=== PATIENT | female | born 2000 | race Caucasian/White ===

== ENCOUNTER 2025-09-09 13:36 | Emergency (ER) | payer MEDICAID, SELFPAY ==
--- OUTSIDE RECORDS SUMMARY | 2025-08-26 12:07 | XMS_ITS | Encounter Summary ---
[facility] Organization [facility] [facility] tem Address [id number] [place] [address] Care Team Providers Care Parachute Accessories Attacher Name Role Phone Unavailable Primary Care Provider Unavailabl e Reason for Visit * ReasonCommentsCough Encounter Details DateTypeDepartmentCare Team (Latest Contact Info)Mbswflpabgt20/06/2025 12:07 PM EST - 08/26/2025 1:18 PM [facility] - Emergency [address] [place] [id number] Saeed Friend MD [address] [place] [address] [address] [place] [address] Bronchial irritation (Primary Dx) Discharge Disposition: Home Social History Tobacco UseTypesPacks/DayYears UsedDateSmoking Tobacco: NeverPassive Smoke Exposure: YesSmokeless Tobacco: NeverAlcohol UseStandard Drinks/WeekCommentsNo0 (1 standard drink = 0.6 oz pure alcohol)Social Connection and Isolation Panel AnswerDate RecordedIn a typical week, how many times do you talk on the phone with family, friends, or neighbors?More than three times a week09/16/2022How often do you get together with friends or relatives?More than three times a week 2Attends Amish ServicesNot on file09/16/2022o you belong to any clubs or organizations such as jewish groups, unions, fraternal or athletic shalonda ups, or school groups?No09/16/2022ttends Club or Organization MeetingsNot on file09/16/2022Marital StatusNot on file09/16/2022UDIT-CAnswerDate RecordedQ1: How often do you have a drink containing alcohol?Monthly or less09/16/2022 Average Number of DrinksNot on file09/16/2022Frequency of Binge DrinkingNot on file09/16/2022verall Financial Resource Strain (CARDIA)AnswerDate RecordedHow hard is it for you to pay for the very basics like food, housing, medical care, and heating?Not hard at all07/06/2023HQ-2AnswerDate RecordedTotal Score4 07/06/2023[place] [employer] - Occupational Stress QuestionnaireAnswerDate RecordedDo you feel stress - tense, restless, nervous, or anxious, or unable to sleep at night because yourmind is troubled all the time - these days?Not at all09/16/2022RAPARE - TransportationAnswerDate RecordedIn the past 12 months, has lack of transportation kept you from medical appointments or from getting medications?No06/13/2023In the past 12 months, has lack of transportation kept you from meetings, work, or from getting things needed for daily living?No06/13/2023Edinburgh Depression ScaleAnswer Date RecordedEdinburgh Depression Scale Iepof58310/05/2023The thought of harming myself has occurred to me.Never10/05/2023Housing InstabilityAnswerDate RecordedAre you worried or concerned that in the next two months you may not have stable housing that you own, rent or stay in as a part of a household?No 08/08/2023hildcareAnswerDate RecordedDo problems getting child and adolescent therapist make it difficult for you to work or study?Yes07/06/2023EmploymentAnswerDate RecordedDo you need help finding a local career center and/or a training program?No 09/16/2022Hunger ScreeningAnswerDate RecordedWithin the past 12 months we worried whether our food would run out before we got money to buy more.Never True08/26/2025Within the past 12 months the food we bought just didn't last and we didn't have money to get more.Never True08/26/2025Purpose - LifeAnswerDate RecordedI have a purpose and direction in my life.Agree2 CommentsNoSex and Gender InformationValueDate RecordedSex Assigned at BirthNot on fileLegal HmaTlgqit90/04/2015 12:00 PM EDTGender IdentityNot on fileSexual OrientationNot on filedocumented as of this encounter Last Filed Vital Signs Vital SignReadingTime TakenCommentsBlood Dbxerskg677/8708/26/2025 1:17 PM EST Wibdt691808/26/2025 1:17 PM EMMIeiephmodef07.9 ??C (98.4 ??F)08/26/2025 12:14 PM ESTRespiratory Wqgg965810/27/2024 1:17 PM ESTOxygen Ltzaspghvf38%08/26/2025 1:17 PM ESTInhaled Oxygen Concentration--Umredg57.5 kg (140 lb)08/26/2025 12:14 PM HAHUwocro908.6 cm (5' 4 )08/26/2025 12:14 PM ESTBody Mass Index24.03110/27/2024 12:14 PM ESTdocumented in this encounter Functional Status * ED Hunger ScreeningQuestionAnswerDate of AssessmentAuthorWithin the past 12 months the food we bought just didn't last and we didn't have money to get more.Never True08/26/2025 12:15 PM Enma Garrison RNWithin the past 12 months we worried whether our food would run out before we got money to buy more.Never True08/26/2025 12:15 PM Enma Garrison RN * BEE (kcal)AnswerDate of KkysewzjbyFjxhgp456005/06/2025 12:14 PM Enma Garrison RN * Pain AssessmentQuestionAnswerDate of AssessmentAuthorPain AssessmentNo/denies pain08/26/2025 12:14 PM Enma Garrison RN * [place] Coma ScaleQuestionAnswerDate of AssessmentAuthorEye Mobzyua268/06/2025 12:15 PM Enma Garrison RNBest Motor Flojgjhk908/06/2025 12:15 PM Enma Cruz RNBest Verbal Lsaatnye054/06/2025 12:15 PM Enma Garrison RNGlasgow Coma Scale Sifjs5435/06/2025 12:15 PM Enma Garrison RN * Vital SignsQuestionAnswerDate of EgrfnkbxpnZfqkcoGV441/8708/26/2025 1:17 PM Fiordaliza Fuentes, AWSwcam4464/06/2025 1:17 PM Fiordaliza Fuentes RNResp18 08/26/2025 1:17 PM Fiordaliza Fuentes UCIjD34599/06/2025 1:17 PM Fiordaliza Fuentes RNHeart Rate SourcePulse Ox08/26/2025 1:17 PM Fiordaliza Fuentes RN * Patient ObservationQuestionAnswerDate of IfgzukmsntRmxodeQwaawx6493/06/2025 12:14 PM Enma Garrison RNWeight2240110/27/2024 12:14 PM Enma Garrison RN * BSA (Calculated - sq m)AnswerDate of AssessmentAuthor1.6908/26/2025 12:14 PM Enma Garrison RN * BMI (Calculated)AnswerDate of YnlcucftgjTushwj4110/06/2025 12:14 PM Enma Cruz RN * Height and WeightQuestionAnswerDate of AssessmentSouth[facility] MethodStated 08/26/2025 12:14 PM Enma Garrison RN * Abuse Indicator ScreeningQuestionAnswerDate of AssessmentAutPhysicians Care [facility] in [facility] 08/26/2025 12:15 PM Enma Garrison RNDo you feel safe in your relationship(s)?Yes08/26/2025 12:15 PM Enma Garrison RNAre you in immediate danger?No08/26/2025 12:15 PM Enma Garrison RN * Harm Risk AssessmentQuestionAnswerDate of AssessmentAuthorAre you having thoughts of homicide or causing harm to others?No08/26/2025 12:15 PM Enma Cruz RN * Blood HistoryQuestionAnswerDate of AssessmentAuthorHave you had a blood transfusion?No08/26/2025 12:16 PM Enma Garrison RNWould you accept a blood transfusion in a life-threatening situation?Yes08/26/2025 12:16 PM Enma Cruz RN * Fall Prevention Screening 18-64 yearsQuestionAnswerDate of AssessmentAuthorIs Patient Alert, Oriented and Able to Follow VkditvaqTfp91/06/2025 12:15 PM Enma Cruz RNFall Prevention ScreenDoes Not Apply to Patient - Screening Sxeubjhx25/06/2025 12:15 PM Enma Garrison RN * Vital SignsQuestionAnswerDate of LgchrwjqswPpnnwtQdgq50. 12:14 PM Enma Garrison RNTemp gokVqpi8308/26/2025 12:14 PM Enma Garrison RN BP LocationLeft arm08/26/2025 12:14 PM Enma Garrison RNBP Method Dkupqenbu15/06/2025 12:14 PM Enma Garrison RNPatient Position Semi-ibxwmej7908/26/2025 12:14 PM Enma Garrison RN * Oxygen TherapyQuestionAnswerDate of AssessmentAuthorO2 DeviceNone (Room air) 08/26/2025 12:14 PM Enma Garrison RN * RespiratoryQuestionAnswerDate of AssessmentAuthorRespiratory PatternRegular 08/26/2025 12:30 PM Fiordaliza Fuentes RNChesmarc AssessmentChest expansion drhtewqtjkp79/06/2025 12:30 PM Fiordaliza Fuentes RNCoughCongested08/26/2025 12:30 PM Fiordaliza Fuentes RNCough UeanbojCrh21/06/2025 12:30 PM Fiordaliza Titus RN * Adult Sepsis RiskQuestionAnswerDate of AssessmentAuthorSIRS Criteria0 08/26/2025 1:01 PM Tate ClindocRigia of Sepsis v.20.6110/27/2024 1:01 PM Tate Clindoc * AirwayQuestionAnswerDate of AssessmentAuthorAirway (WDL)WDL110/27/2024 12:15 PM Enma Garrison RN * BreathingQuestionAnswerDate of AssessmentAuthorBreathing (WDL)WDL110/27/2024 12:15 PM Enma Garrison RN * CirculationQuestionAnswerDate of AssessmentAuthorCirculation (WDL)WDL 08/26/2025 12:15 PM Enma Garrison RN * DisabilityQuestionAnswerDate of AssessmentAuthorDisability ([facility])WDL110/27/2024 12:15 PM Enma Garrison RN * Weight in (lb) to have BMI = 25AnswerDate of PokiqmlgwxDgrjcn090. 12:14 PM Enma Garrison RN * [place] Suicide BehaviorQuestionAnswerDate of AssessmentAuthor6. Have you ever done anything, started to do anything, or prepared to do anything to end your life?No08/26/2025 12:15 PM Enma Garrison RN * Suicidal Ideation (Last Month)QuestionAnswerDate of AssessmentAuthor1. In the last month have you wished you were or wished you could go to sleep and not wake up?No08/26/2025 12:15 PM Enma Garrison RN2. In the last month have you actually had any thoughts of killing yourself?No08/26/2025 12:15 PM Enma Garrison RNAble to assess?Yes08/26/2025 12:15 PM Enma Garrison RN * Vitals TimerQuestionAnswerDate of AssessmentAuthorRestart Vitals TimerYes 08/26/2025 1:17 PM Fiordaliza Fuentes RN * Respiratory (WDL)AnswerDate of HzwyrfreppMddeuaF49/06/2025 12:30 PM Fiordaliza Titus RN * TB ScreeningQuestionAnswerDate of AssessmentAuthorPatient has prolonged cough? No08/26/2025 12:15 PM Enma Garrison RNPatient has bloody cough?No 08/26/2025 12:15 PM Enma Garrison RNPatient has fever?No08/26/2025 12:15 PM Enma Garrison RNPatient has night sweats?No08/26/2025 12:15 PM Enma Garrison RNPatient has weight loss?No08/26/2025 12:15 PM EST Enma Dobbins RNPatient has positive PPD?No08/26/2025 12:15 PM Enma Cruz RN * [place] Suicide Risk LevelAnswerDate of AssessmentAuthorNot at Suicide Risk 08/26/2025 12:15 PM Enma Garrison RN * BEE (kcal)AnswerDate of ReutgwfxmnMiesyo527987/06/2025 12:14 PM Enma Garrison RN * Vital SignsQuestionAnswerDate of YqkcgzouvtZnbedzFU070/8708/26/2025 1:17 PM Fiordaliza Fuentes RNPulse6308/26/2025 1:17 PM Fiordaliza Fuentes RNResp18 08/26/2025 1:17 PM Fiordaliza Fuentes RNSpO29808/26/2025 1:17 PM Fiordaliza Fuentes RNHeart Rate SourcePulse Ox08/26/2025 1:17 PM Fiordaliza Fuentes RN * Patient ObservationQuestionAnswerDate of WggzastfqfJzaljsUqyivo4897/06/2025 12:14 PM Enma Garrison RNWeight2240110/27/2024 12:14 PM Enma Garrison RN * BSA (Calculated - sq m)AnswerDate of AssessmentAuthor1.6908/26/2025 12:14 PM Enma Garrison RN * BMI (Calculated)AnswerDate of SpjlsvkosiQwsfdo4421 12:14 PM Enma Cruz RN * Height and WeightQuestionAnswerDate of AssessmentAuthorHeight MethodStated 08/26/2025 12:14 PM Enma Garrison RN * Vital SignsQuestionAnswerDate of XffjfirwujVlvkmzDrth49.412 12:14 PM Enma Garrison RNTemp ldrOpdi8808/26/2025 12:14 PM Enma Garrison RN BP LocationLeft arm08/26/2025 12:14 PM Enma Garrison RNBP Method Iwuylyhyb53/06/2025 12:14 PM Enma Garrison RNPatient Position Semi-aqjkiah3508/26/2025 12:14 PM Enma Garrison RN * Weight in (lb) to have BMI = 25AnswerDate of VhqaubzktyYjfrjl833.312 12:14 PM Enma Garrison RN documented as of this encounter Mental Status * Pain AssessmentQuestionAnswerEntry DateAuthorPain AssessmentNo/denies pain 08/26/2025 12:14 PM Enma Garrison RN * [place] Coma ScaleQuestionAnswerEntry DateAuthorEye Keechav231/06/2025 12:15 PM Enma Garrison RNBest Motor Gescdxwx622/06/2025 12:15 PM Enma Garrison RNBest Verbal Vgbnosdy923/06/2025 12:15 PM Enma Garrison RN Mcarthur Coma Scale Jbmlo7558/06/2025 12:15 PM Enma Garrison RN * Vital SignsQuestionAnswerEntry PmbhSvzudxFF173/8708/26/2025 1:17 PM Fiordaliza Titus RNPulse6308/26/2025 1:17 PM Fiordaliza Fuentes RNResp18 08/26/2025 1:17 PM Fiordaliza Fuentes RNSpO29808/26/2025 1:17 PM Fiordaliza Fuentes RNHeart Rate SourcePulse Ox08/26/2025 1:17 PM Fiordaliza Fuentes RN * Vital SignsQuestionAnswerEntry XadxJtahazMvej34. 12:14 PM Enma Cruz RNTemp iiwKbiw6208/26/2025 12:14 PM Enma Garrison RNBP LocationLeft arm08/26/2025 12:14 PM Enma Garrison RNBP MethodAutomatic 08/26/2025 12:14 PM Enma Garrison, RNPatient PositionSemi-fowlers 08/26/2025 12:14 PM Enma Garrison RN * Oxygen TherapyQuestionAnswerEntry DateAuthorO2 DeviceNone (Room air)08/26/2025 12:14 PM Enma Garrison RN * RespiratoryQuestionAnswerEntry DateAuthorRespiratory JuqsdunQpihyya34/06/2025 12:30 PM Fiordaliza Fuentes RNChest AssessmentChest expansion symmetrical 08/26/2025 12:30 PM Fiordaliza Fuentes RN documented in this encounter Discharge Instructions * Discharge Instructions* Saeed Friend MD - 08/26/2025 12:59 PM EST Today you were evaluated for blood-streaked mucus. Your exam, chest X-ray, and blood tests (D-dimer) were normal. This is reassuring and means there is no evidence of a serious lung problem such as pneumonia, a blood clot, or a collapsed lung. Your symptoms are most consistent with irritation of the airways, which can happen after coughing, throat dryness, recent illness, or minor inflammation of the bronchial tubes. What You Can Do at Home 1. Humidify the Air Dry air can make coughing and irritation worse. Use a cool-mist humidifier in your bedroom at night. Staying well-hydrated also helps thin mucus. 2. Medications That Are Safe You may use: Guaifenesin (Mucinex) to help loosen mucus. Honey or warm tea for throat soothing. 3. Medications to AVOID Right Now These can dry out the airways and make symptoms worse: Antihistamines like diphenhydramine (Benadryl), loratadine (Claritin), cetirizine (Zyrtec) Decongestants like pseudoephedrine (Sudafed) or phenylephrine Cough suppressants with dextromethorphan if they cause dryness Frequent use of inhalers that were not prescribed for you Smoking or vaping (avoid completely) What to Expect: Blood-streaked sputum from airway irritation is usually self-limited and improves over the next several days. Return to the ER Immediately If You Develop: Increasing amounts of blood Fever, chills, or worsening shortness of breath Chest pain Feeling faint or coughing up clots Symptoms that worsen instead of improve over 48 hours Any new or concerning symptoms Follow-Up Follow up with your primary care provider in 1-2 days or sooner if symptoms worsen. * Attachments The following attachments cannot be sent through Care Everywhere. * Bronchitis in adults ??? ED discharge instructions (French) documented in this encounter Medications at Time of Discharge MedicationSigDispense QuantityRefillsLast FilledStart DateEnd Date ibuprofen (MOTRIN) 800 mg tablet Take 1 tablet (800 mg total) by mouth every 8 (eight) hours as needed for pain. 30 tablet 4documented as of this encounter ED Notes * Saeed Friend MD - 08/26/2025 12:14 PM EST Images from the original note were not included. [facility] - EMERGENCY Pt Name: Radha Rudd Birthdate: 2000 Chief Complaint: Chief Complaint Patient presents with Cough History of Present Illness: Initial evaluation done by Dr. Kedar Friend at 12:15 PM Pt is a 25 y.o. female presenting to ED with chief complaint of cough. Pt reports a few hours priorto her arrival at the ED she coughed up blood. She reports it was dark at first, then bright red, and then she coughed up a clot. She reports a hx of Mitral Valve Prolapse, but states she has nevercoughed up blood before. Pt denies any chest pain, calf pain or swelling, any recent travel, surgeries, and denies blood thinners or oral control. History provided by: Patient Past Medical History: Past Medical History: Diagnosis Date Anemia during pregnency Anxiety Arrhythmia palpitations due to MVP Asthma no issues since age 6 COVID-2019 Dysautonomia (CMS-HCC) GERD (gastroesophageal reflux disease) when , resolved now Hydronephrosis RIGHT KIDNEY, HAD STENT AND NEPHROSTOMY PLACED during her recent Mitral valve prolapse Peptic ulceration years ago POTS (postural orthostatic tachycardia syndrome) Recurrent UTI Renal colic on right side Past Surgical History: Past Surgical History: Procedure Laterality Date CYSTOSCOPY REMOVAL STENT RT Right 08/08/2019 Performed by Lucille Marsh MD at [facility] CYSTOSCOPY URETEROSCOPY, Right ureteral stent placement Right 08/05/2019 Performed by Lucille Marsh MD at [facility] LAPAROSCOPIC SALPINGECTOMY Bilateral 10/29/2023 Performed by Jane Kramer DO at [facility] NEPHROSTOMY W/ INTRODUCTION OF CATHETER Right 05/23/2023 inserted at [facility] Family History: Family History Problem Relation Age of Onset Cancer Paternal Grandfather LUNG Heart disease Paternal Grandfather Hypertension Paternal Grandfather Asthma Paternal Grandfather Heart attack Paternal Grandfather in his 50s No Known Problems Paternal Grandmother No Known Problems Maternal Grandmother No Known Problems Maternal Grandfather Other Father MVA No Known Problems Mother Asthma Brother No Known Problems Sister Hypertension Maternal Aunt Heart defect Neg Hx Seizures Neg Hx Diabetes Neg Hx Arrhythmia Neg Hx Sudden Neg Hx Stroke Neg Hx Clotting disorder Neg Hx High Cholesterol Neg Hx Thyroid Issues Neg Hx Anesthesia problems Neg Hx Social History: Social History Socioeconomic History Marital status: Single Tobacco Use Smoking status: Never Passive exposure: Yes Smokeless tobacco: Never Vaping Use Vaping status: Never Used Substance and Sexual Activity Alcohol use: No Drug use: Never Sexual activity: Defer Social History Narrative NO SPORTS NO SPECIAL DIET Social Drivers of Health Financial Resource Strain: Low Risk (07/06/2023) Overall Financial Resource Strain (CARDIA) Difficulty of Paying Living Expenses: Not hard at all Food Insecurity: No Food Insecurity (08/26/2025) Hunger Screening Food Insecurity - Worry: Never True Food Insecurity - Inability: Never True Transportation Needs: No Transportation Needs (06/13/2023) PRAPARE - Transportation Lack of Transportation (Medical): No Lack of Transportation (Non-Medical): No Stress: No Stress Concern Present (09/16/2022) [place] Citizen [place] [employer] - Occupational Stress Questionnaire Feeling of Stress : Not at all Social Connections: Unknown (09/16/2022) Social Connection and Isolation Panel Frequency of Communication with Friends and Family: More than three times a week Frequency of Social Gatherings with Friends and Family: More than three times a week Active Member of Clubs or Organizations: No Interpersonal Safety: Unknown (11/12/2023) Received from [facility] Safety & Environment Fear of Current or Ex-Partner: Not on file Emotionally Abused: Not on file Physically Abused: Not on file Sexually Abused: Not on file Physically or Sexually Abused: Not on file Housing Instability: Low Risk (08/08/2023) Housing Instability Housing Instability: No Review of Systems: Review of Systems Physical Exam: ED Triage Vitals Temp Pulse Resp BP SpO2 -- -- -- -- -- Temp src Heart Rate Source Patient Position BP Location FiO2 (%) -- -- -- -- -- Vitals: 08/26/25 1214 08/26/25 1317 BP: 143/81 105/87 Temp: 36.9 ??C (98.4 ??F) TempSrc: Oral Pulse: (!) 47 63 Resp: 18 18 SpO2: 99% 98% Height: 162.6 cm (5' 4 ) Weight: 63.5 kg (140 lb) 98 Physical Exam Vitals reviewed. HENT: Head: Normocephalic and atraumatic. Eyes: Conjunctiva/sclera: Conjunctivae normal. Cardiovascular: Rate and Rhythm: Normal rate and regular rhythm. Comments: Mid-systolic click Pulmonary: Effort: Pulmonary effort is normal. Breath sounds: Normal breath sounds. Comments: Pt showed a photo of the blood she coughed up- showed streaked sputum, no germania hemoptysis Abdominal: General: There is no distension. Palpations: Abdomen is soft. Musculoskeletal: General: Normal range of motion. Cervical back: Normal range of motion and neck supple. Skin: General: Skin is warm and dry. Neurological: General: No focal deficit present. Mental Status: She is alert and oriented to person, place, and time. GCS: GCS eye subscore is 4. GCS verbal subscore is 5. GCS motor subscore is 6. Procedure: Procedures Re-evaluation: I, Mahi Handy (scribe), documented on behalf and in the presence of Dr. Kedar Friend. Medical Decision Making Likely bronchial irritation/bronchitis. Supportive care and reassurance. CXR negative, D-dimer negative. Plan to discharge patient with follow up to primary care physician. Patient given strict return precautions. Patient expressed understanding. All questions and concerns answered and addressed. Patient agreeable to discharge plan. Problems Addressed: Bronchial irritation: self-limited or minor problem Amount and/or Complexity of Data Reviewed Labs: ordered. Decision-making details documented in ED Course. Radiology: ordered. Decision-making details documented in ED Course. ED Course: ED Course as of 08/26/25 1436 Sat Aug 26, 2025 1249 X-ray chest 1 view Imaging was independently viewed and is notable for no acute infitrate. However, pending official radiologist read. [RH] 1305 D-dimer: <150 Reassuring against acute VTE. [RH] 1305 Plan to discharge patient with follow up to primary care physician. Patient given strict return precautions. Patient expressed understanding. All questions and concerns answered and addressed. Patient agreeable to discharge plan. [RH] ED Course User Index [RH] Saeed Friend MD Clinical Impressions as of 08/26/25 1436 Bronchial irritation . ED Disposition ED Disposition Discharge Date/Time Sat Aug 26, 2025 1:06 PM Comment At the time of discharge, the plan has been discussed with the patient regarding the diagnosis and prognosis. All questions have been answered. Verbal discharge instructions were discussed with the patient. The patient has been advised to follow up w ith their Primary Care Provider within 1-2 days.The patient was also instructed to return to the ED if their symptoms change, worsen, new symptoms a rise or if they have any additional concerns. . Please note that portions of this note were completed with a voice recognition program. Efforts were made to edit the dictations but occasionally words are mis-transcribed. Mahi Handy 08/26/25 1220 Mahi Handy 08/26/25 1227 Saeed Friend MD 08/26/25 1436 * Enma Dobbins RN - 08/26/2025 12:11 PM EST Pt presents with c/o coughing up blood. Reports about a couple hrs ago she coughed up some bright red blood and a dark blood clot. No other sx. documented in this encounter Plan of Treatment Not on file documented as of this encounter Procedures Procedure NamePriorityDate/TimeAssociated DiagnosisCommentsXR CHEST 1 VWSTAT 08/26/2025 12:44 PM EST EXTRA TUBES LAVENDER GBFGikslnx05/06/2025 12:27 PM EST EXTRA TUBES PST IXNXrpgznf86/06/2025 12:27 PM EST EXTRA EQRPCBgiuycs36/06/2025 12:27 PM EST D-NTDXOITMW54/06/2025 12:27 PM EST documented in this encounter Results * X-ray chest 1 view (08/26/2025 12:44 PM EST)Anatomical RegionLaterality ModalityBody, ChestN/AComputed RadiographySpecimen (Source)Anatomical Location / LateralityCollection Method / VolumeCollection TimeReceived Time08/26/2025 12:46 PM EST Narrative 08/26/2025 12:46 PM EST XR CHEST 1 VW: 08/26/2025 12:44 PM Clinical: ??Cough. Bloody sputum. Upright portable chest is compared with 08/12/2023. Heart size is normal. No focal consolidation, large effusion, or pneumothorax. IMPRESSION: * ??No acute disease to limits of this single view exam. ?? * ??Recommend a two-view chest or CT if symptoms persist. Finalized by Chilango Menard MD on 08/26/2025 12:46 PM Procedure Note Chilango Menard MD - 08/26/2025 XR CHEST 1 VW: 08/26/2025 12:44 PM Clinical: Cough. Bloody sputum. Upright portable chest is compared with 08/12/2023. Heart size is normal. No focal consolidation, large effusion, or pneumothorax. IMPRESSION: * No acute disease to limits of this single view exam. * Recommend a two-view chest or CT if symptoms persist. Finalized by Chilango Menard MD on 08/26/2025 12:46 PM Authorizing ProviderResult TypeResult Christa [facility] ORDERABLESFinal Result * Lavender Top (08/26/2025 12:27 PM EST)ComponentValueRef RangeTest Method Analysis TimePerformed AtPathologist SignatureExtra TubeAuto Resulted 08/26/2025 2:01 PM ESTMem[facility] (Source) Anatomical Location / LateralityCollection Method / VolumeCollection Time Received TimeBloodVenous blood / Vckfcmw5008/26/2025 12:27 PM EST08/26/2025 12:38 PM EST Narrative Authorizing ProviderResult TypeResult Christa LYNN BLOOD ORDERABLES Final ResultPerforming OrganizationAddressCity/State/ZIP CodePhone Number [address] [address], * PST TOP (08/26/2025 12:27 PM EST)ComponentValueRef RangeTest MethodAnalysis TimePerformed AtPathologist SignatureExtra TubeAuto Jjorzpml06/06/2025 2:01 PM [facility] (Source)Anatomical Location / LateralityCollection Method / VolumeCollection TimeReceived TimeBloodVenous blood / Tzqnzyf4508/26/2025 12:27 PM EST08/26/2025 12:38 PM EST Narrative Authorizing ProviderResult TypeResult Christa LYNN BLOOD ORDERABLES Final ResultPerforming OrganizationAddressty/State/ZIP CodePhone Number [address] [address], [place] * D-Dimer (08/26/2025 12:27 PM EST)ComponentValueRef RangeTest MethodAnalysis TimePerformed AtPathologist SignatureD DIMER<1501 - 255 ng/mL08/26/2025 1:02 PM ESTPROMEDICA NORTHERN INYO HOSPITALComment:Results <255 ng/mL DDU: The presensence of a VTE can safely be excluded with a negative D-Dimer result and Wells score. A negative result doesn't exclude the possibility of DIC. The test should berepeated along with other diagnostic tests if the patient's symptoms persist or worsen.Specimen (Source)Anatomical Location / Laterality Collection Method / VolumeCollection TimeReceived TimeBloodVenous blood / UnknownVenipuncture / Rlmfctk8008/26/2025 12:27 PM EST08/26/2025 12:37 PM EST Narrative Authorizing ProviderResult TypeResult StatusSaeed LYNN BLOOD ORDERABLES Final ResultPerforming OrganizationAddressCity/State/ZIP CodePhone Number [facility] [address] [place] [address], documented in this encounter Visit Diagnoses Diagnosis Bronchial irritation- Primary documented in this encounter Additional Health Concerns AssessmentNoted TimePHQ-9 Depression Total Score: 410 11:30 AM EDT documented as of this encounter
--- OUTSIDE RECORDS SUMMARY | 2025-09-09 09:42 | XMS_ITS | Encounter Summary ---
Author Organization [facility] tem Address [id number] [address] [place] [address] Care Team Providers Care Audit Analyst Name Role Phone Ema Strong MD Primary Care Provider [phone] Reason for Visit * ReasonCommentsVomitingPatient c/o vomiting x2 days and a headache since yesterday Encounter Details DateTypeDepartmentCare Team (Latest Contact Info)Wzaomuiflnl24/20/2025 9:42 AM EST - 09/09/2025 12:30 PM [facility] - Emergency [address] [place] [address] Ifrah Schmidt, DO [address] [place] [address] Gastroenteritis (Primary Dx) Discharge Disposition: Home Social History [...] or relatives?More than three times a week 09/16/2022ttends Roman Catholic ServicesNot on file09/16/2022o you belong to any clubs or organizations such as hindu groups, unions, fraternal or athletic shalonda ups, [...] and heating?Not hard at all07/06/2023HQ-2AnswerDate RecordedTotal Score4 07/06/2023[facility] [place] [facility] - Occupational Stress QuestionnaireAnswerDate [...] living?No06/13/2023Edinburgh Depression ScaleAnswer Date RecordedEdinburgh Depression Scale Vecil89110/05/2023The thought of harming myself has occurred to me.Never10/05/2023Housing InstabilityAnswerDate RecordedAre you worried or concerned that in the next two months you may not have stable housing that you own, rent or stay in as a part of a household?No 08/08/2023hildcareAnswerDate RecordedDo problems getting children's institution attendant make it difficult for you to work or study?Yes07/06/2023EmploymentAnswerDate RecordedDo you need help finding a local career center and/or a training program?No 09/16/2022Hunger ScreeningAnswerDate RecordedWithin the past 12 months we worried whether our food would run out before we got money to buy more.Never True09/09/2025Within the past 12 months the food we bought just didn't last and we didn't have money to get more.Never True09/09/2025Purpose - LifeAnswerDate RecordedI have a purpose and direction in my life.Agree09/16/2022 CommentsNoSex and Gender InformationValueDate RecordedSex Assigned at BirthNot on fileLegal UvvClcwoj53/04/2015 12:00 PM EDTGender IdentityNot on fileSexual OrientationNot on filedocumented as of this encounter Last Filed Vital Signs Vital SignReadingTime TakenCommentsBlood Onizqcxs747/7109/09/2025 11:43 AM EST Ylrzp898809/09/2025 11:43 AM PVZQurnbffxnqk33.4 ??C (97.6 ??F)09/09/2025 9:46 AM ESTRespiratory Iegz142911/10/2024 11:43 AM ESTOxygen Dpssigaznq78%09/09/2025 11:43 AM ESTInhaled Oxygen Concentration--Ijhuul64.5 kg (140 lb)09/09/2025 9:46 AM EST Height--Body Mass Index24.03110/27/2024 12:14 PM ESTdocumented in this encounter Functional Status * ED Hunger ScreeningQuestionAnswerDate of AssessmentAuthorWithin the past 12 months the food we bought just didn't last and we didn't have money to get more.Never True09/09/2025 9:48 AM Khushbu Smith RNWithin the past 12 months we worried whether our food would run out before we got money to buy more.Never True09/09/2025 9:48 AM Khushbu Smith RN * Pain AssessmentQuestionAnswerDate of AssessmentAuthorPain LocationAbdomen 09/09/2025 9:48 AM Khushbu Smith RNPain OrientationRight;Left;Lower 09/09/2025 9:48 AM Khushbu Smith RNPain XivagswjjueMbybe77/20/2025 9:48 AM Khushbu Smith RNPain DurationConstant/kpwpejljzl54/20/2025 9:48 AM Khushbu Smith RNPain TypeAcute pain09/09/2025 9:48 AM Khushbu Smith RNPain Assessment0-10111/10/2024 9:48 AM Khushbu Smith RNPain Bklhc66611/10/2024 9:48 AM Khushbu Smith RN * [place] Coma ScaleQuestionAnswerDate of AssessmentAuthorEye Ezzkmxv338/20/2025 9:47 AM Khushbu Smith RNBest Motor Ertyazhu800/20/2025 9:47 AM Khushbu Mills RNBe Verbal Fxuxnrkq655/20/2025 9:47 AM Khushbu Smith RNGlasgow Coma Scale Rwzka8302/20/2025 9:47 AM Khushbu Smith RN * Patient ObservationQuestionAnswerDate of ZbrguiorjeGkhgffUzbgay019514/20/2025 9:46 AM Khushbu Smith RN * Abuse Indicator ScreeningQuestionAnswerDate of AssessmentAuthorSafe in HomeYes 09/09/2025 9:48 AM Khushbu Smith RNDo you feel safe in your relationship(s)?Yes09/09/2025 9:48 AM Khushbu Smith RNAre you in immediate danger?No09/09/2025 9:48 AM Khushbu Smith RN * Harm Risk AssessmentQuestionAnswerDate of AssessmentAuthorAre you having thoughts of homicide or causing harm to others?No09/09/2025 9:47 AM Khushbu Mills RN * Blood HistoryQuestionAnswerDate of AssessmentAuthorHave you had a blood transfusion?No09/09/2025 9:48 AM Khushbu Smith RNWould you accept a blood transfusion in a life-threatening situation?Yes09/09/2025 9:48 AM Khushbu Mills RN * Fall Prevention Screening 18-64 yearsQuestionAnswerDate of AssessmentAuthorIs Patient Alert, Oriented and Able to Follow RqovnplfWks23/20/2025 9:48 AM Khushbu Mills RNFall Prevention ScreenDoes Not Apply to Patient - Screening Jhawvrbp68/20/2025 9:48 AM Khushbu Smith RN * Vital SignsQuestionAnswerDate of PevtowumptHfkgbnUY928/7109/09/2025 11:43 AM Diane Gonsalez QZHyyp82.6111/10/2024 9:46 AM Khushbu Smith, RNTemp txvHoiv6709/09/2025 9:46 AM Khushbu Smith, DDBokip5406/20/2025 11:43 AM Diane Gonsalez SQKpto7818/20/2025 11:43 AM Diane Gonsalez, RTPtR524 09/09/2025 11:43 AM Diane Gonsalez RNHeart Rate SourcePulse Ox09/09/2025 9:46 AM Khushbu Smith RNBP LocationLeft arm09/09/2025 9:46 AM Khushbu Mills RNBP PcmfptExcdgzcsz12/20/2025 9:46 AM Khushbu Smith RNPatient PositionLying nrijdj4009/09/2025 9:46 AM Khushbu Smith, RAFFY * Oxygen TherapyQuestionAnswerDate of AssessmentAuthorO2 DeviceNone (Room air) 09/09/2025 11:43 AM Diane Gonsalez RN * NeurologicalQuestionAnswerDate of AssessmentAuthorNeuro (WDL)WDL111/10/2024 12:26 PM Diane Gonsalez RN * Adult Sepsis RiskQuestionAnswerDate of AssessmentAuthorSIRS Criteria0 09/09/2025 12:40 PM ESTBackground, ClindocRisk of Sepsis v.20. 12:41 PM ESTBackground, Clindoc * AirwayQuestionAnswerDate of AssessmentAuthorAirway (WDL)WDL111/10/2024 9:47 AM Khushbu Smith, RAFFY * BreathingQuestionAnswerDate of AssessmentAuthorBreathing (WDL)WDL111/10/2024 9:47 AM Khushbu Smith, RAFFY * CirculationQuestionAnswerDate of AssessmentAuthorCirculation (WDL)WDL 09/09/2025 9:47 AM Khushbu Smith RN * DisabilityQuestionAnswerDate of AssessmentAuthorDisability (WDL)WDL111/10/2024 9:47 AM Khushbu Smith RN * Bedside MonitorQuestionAnswerDate of AssessmentAuthorPulse Ox Monitoring Fvajkekxls71/20/2025 10:07 AM Khushbu Smith RNBedside Monitoring Atakboay05/20/2025 10:07 AM Khushbu Smith RNMonitoring Interventions Vykgdmhnc52/20/2025 10:07 AM Khushbu Smith RNMonitoring AlarmsAudible 09/09/2025 10:07 AM Khushbu Smith RN * Family/Data Warehousing Engineer NotifiedQuestionAnswerDate of AssessmentAuthor Family/Data Warehousing Engineer notified of Emergency Department Admission?Family iaxdshq6109/09/2025 9:48 AM Khushbu Smith RN * [place] Suicide BehaviorQuestionAnswerDate of AssessmentAuthor6. Have you ever done anything, started to do anything, or prepared to do anything to end your life?No09/09/2025 9:47 AM Khushbu Smith RN * Suicidal Ideation (Last Month)QuestionAnswerDate of AssessmentAuthor1. In the last month have you wished you were or wished you could go to sleep and not wake up?No09/09/2025 9:47 AM Khushbu Smith RN2. In the last month have you actually had any thoughts of killing yourself?No09/09/2025 9:47 AM Khushbu Smith RNAble to assess?Yes09/09/2025 9:47 AM Khushbu Smith RN * AbdominalQuestionAnswerDate of AssessmentAuthorAbdomen AssessmentTenderness 09/09/2025 10:40 AM Khushbu Smith RNAbdomen Tenderness LocationRLQ;LLQ 09/09/2025 10:40 AM Khushbu Smith RNGI SymptomsCramping;Nausea;Vomiting 09/09/2025 10:40 AM Khushbu Smith RNGastrointestinal (WDL)X111/10/2024 10:40 AM Khushbu Smith RN * Skin Color/ConditionQuestionAnswerDate of AssessmentAuthorSkin Color/Condition (WDL)WDL111/10/2024 11:44 AM Diane Gonsalez RN * CardiovascularQuestionAnswerDate of AssessmentAuthorCardiovascular (WDL)WDL 09/09/2025 12:26 PM Diane Gonsalez RN * Vitals TimerQuestionAnswerDate of AssessmentAuthorRestart Vitals TimerYes 09/09/2025 11:43 AM Diane Gonsalez RNRestart Vitals RthvqYwu36/20/2025 11:43 AM Diane Gonsalez RN * Respiratory (WDL)AnswerDate of QebjvcoxcsRtkhtfXFW89/20/2025 12:26 PM Diane Bates RN * TB ScreeningQuestionAnswerDate of AssessmentAuthorPatient has prolonged cough? No09/09/2025 9:48 AM Khushbu Smith RNPatient has bloody cough?No 09/09/2025 9:48 AM Khushbu Smith RNPatient has fever?No09/09/2025 9:48 AM Khushbu Smith RNPatient has night sweats?No09/09/2025 9:48 AM Khushbu Mills RNPatient has weight loss?No09/09/2025 9:48 AM Khushbu Smith RNPatient has positive PPD?No09/09/2025 9:48 AM Khushbu Smith RN * [place] Suicide Risk LevelAnswerDate of AssessmentAuthorNot at Suicide Risk 09/09/2025 9:47 AM Khushbu Smith RN * Patient ObservationQuestionAnswerDate of GhnrgjtiicKysfelVapral381820/20/2025 9:46 AM Khushbu Smith RN * Vital SignsQuestionAnswerDate of JqofbwtgioCinwfqQH582/7109/09/2025 11:43 AM Diane Gonsalez RNTemp97.6111/10/2024 9:46 AM Khushbu Smith RNTemp lecCjst8009/09/2025 9:46 AM Khushbu Smith, OGWuusx8373/20/2025 11:43 AM Diane Gonsalez LMDvni1637/20/2025 11:43 AM Diane Gonsalez, VNGcR544 09/09/2025 11:43 AM Diane Gonsalez RNHeart Rate SourcePulse Ox09/09/2025 9:46 AM Khushbu Smith RNBP LocationLeft arm09/09/2025 9:46 AM Khushbu Mills RNBP ZtnaufYakrljmlw17/20/2025 9:46 AM Khushbu Smith RNPatient PositionLying zqinmm0809/09/2025 9:46 AM Khushbu Smith RN documented as of this encounter Mental Status * Pain AssessmentQuestionAnswerEntry DateAuthorPain NcrwvwcrGurvcjw75/20/2025 9:48 AM Khushbu Smith RNPain OrientationRight;Left;Lower09/09/2025 9:48 AM Khushbu Smith RNPain NfignyiydjpOijdt66/20/2025 9:48 AM Khushbu Smith RNPain DurationConstant//20/2025 9:48 AM Khushbu Smith RNPain Assessment0-10111/10/2024 9:48 AM Khushbu Smith RNPain Gafff28111/10/2024 9:48 AM Khushbu Smith RN * [place] Coma ScaleQuestionAnswerEntry DateAuthorEye Ajftnpg399/20/2025 9:47 AM Khushbu Smith RNBest Motor Mkkotepk085/20/2025 9:47 AM Khushbu Smith RNBest Verbal Oenyrder032/20/2025 9:47 AM Khushbu Smith RN Verena Coma Scale Opnnb5124/20/2025 9:47 AM Khushbu Smith RN * Vital SignsQuestionAnswerEntry ZapdPvoffqIK235/7109/09/2025 11:43 AM Diane Gonsalez RNTemp97.6111/10/2024 9:46 AM Khushbu Smith RNTemp srcOral 09/09/2025 9:46 AM Khushbu Smith, UQPuukb9663/20/2025 11:43 AM Diane Gonsalez RNResp18111/10/2024 11:43 AM Diane Gonsalez LNLsL32398/20/2025 11:43 AM Diane Gonsalez RNHeart Rate SourcePulse Ox09/09/2025 9:46 AM Khushbu Mills RNBP LocationLeft arm09/09/2025 9:46 AM Khushbu Smith RNBP MozraqQehljvrzg59/20/2025 9:46 AM Khushbu Smith RNPatient Position Lying ukgwcb5709/09/2025 9:46 AM Khushbu Smith RN * Oxygen TherapyQuestionAnswerEntry DateAuthorO2 DeviceNone (Room air)09/09/2025 11:43 AM Diane Gonsalez RN * NeurologicalQuestionAnswerEntry DateAuthorNeuro (WDL)WDL111/10/2024 12:26 PM Diane Gonsalez RN * Bedside MonitorQuestionAnswerEntry DateAuthorBedside MonitoringHardwire 09/09/2025 10:07 AM Khushbu Smith RNMonitoring InterventionsInitiated 09/09/2025 10:07 AM Khushbu Smith RNMonitoring VxydvmIlcvtmb35/20/2025 10:07 AM Khushbu Smith RN * AbdominalQuestionAnswerEntry DateAuthorAbdomen CqeigyiyauXhcslgzsdu32/20/2025 10:40 AM Khushbu Smith RNAbdomen Tenderness LocationRLQ;LLQ111/10/2024 10:40 AM Khushbu Smith RNGI SymptomsCramping;Nausea;Uzzwpkly34/20/2025 10:40 AM Khushbu Smith RN documented in this encounter Discharge Instructions * Discharge Instructions* Ifrah Schmidt, DO - 09/09/2025 11:39 AM EST Stick with clear liquids currently. Advance your diet slowly as tolerated. Zofran for the nausea and vomiting. Thank you for allowing me to participate in your healthcare needs and for choosing us to provide your medical care today. Please return to the emergency department anytime for any complications or other concerns. Please call your doctor for outpatient follow up and recommendations. The emergency room cannot replace ongoing care, and it is important for your physician to evaluate you and monitor your health half-way. * Attachments The following attachments cannot be sent through Care Everywhere. * Diarrhea? Adult ED (Bhutanese) * Viral gastroenteritis in adults (Bhutanese) documented in this encounter Medications at Time of Discharge MedicationSigDispense QuantityRefillsLast FilledStart DateEnd Date ibuprofen (MOTRIN) 800 mg tablet Take 1 tablet (800 mg total) by mouth every 8 (eight) hours as needed for pain. 30 tablet 10/29/2023 ondansetron ODT (ZOFRAN ODT) 4 mg disintegrating tablet Dissolve 1 tablet (4 mg total) on tongue every 6 (six) hours as needed for nausea or vomiting for up to 30 days. 10 tablet 501/documented as of this encounter Plan of Treatment Not on file documented as of this encounter Procedures Procedure NamePriorityDate/TimeAssociated DiagnosisCommentsSARS/FLU A+B/RSV BY NAAT/MOLECULAR (M4RT COLLECTION TUBE)STAT111/10/2024 10:06 AM EST EXTRA TUBES BLUE IBRJqjhyuk89/20/2025 10:05 AM EST EXTRA WYRHYHngirwn43/20/2025 10:05 AM EST CBC WITH AUTO WUAXVWTCOINKWAKL25/20/2025 10:05 AM EST BASIC METABOLIC PEACFDPKO93/20/2025 10:05 AM EST POCT , URINE (NUCG)Xxtygdc4809/09/2025 9:57 AM EST POCT NURSING URINE MACROSCOPIC WNAviqxep05/20/2025 9:55 AM EST ER EXTRA URINE MKKIFACKJCB94/20/2025 9:53 AM EST ER EXTRA SXGCUUVZD43/20/2025 9:53 AM EST documented in this encounter Results * SARS/FLU A+B/RSV by NAAT/Molecular (M4RT Collection Tube) (09/09/2025 10:06 AM EST)ComponentValueRef RangeTest MethodAnalysis TimePerformed AtPathologist SignatureFLU A JXUOwidrsmnUdfsatcn49/20/2025 10:56 AM ESTPROCOMMUNITY MEMORIAL HOSPITAL HOSPITALFLU B EAJGqseokqoVzaeqkso06/20/2025 10:56 AM ESTUNIVERSITY HOSPITALS [facility]AU[facility] MED[facility] CENTERRSV BY FKJCzibmpkfEottiwyr64/20/2025 10:56 AM EST [facility]ARS COV 2 BY PCRNot DetectedNot Detected 09/09/2025 10:56 AM [facility]ITALpecimen (Source) Anatomical Location / LateralityCollection Method / VolumeCollection Time Received TimeSwabNasopharyngeal structure / Aelvypo4109/09/2025 10:06 AM EST 09/09/2025 10:14 AM EST Narrative [facility] - 09/09/2025 10:56 AM EST The Xpert Xpress SARS-CoV-2/Flu/RSV Plus test is a rapid, multiplexed real-time RT-PCR test intended for the simultaneous qualitative detection and differentiation of SARS-CoV-2, influenza A, influenza B and respiratory syncytial virus (RSV) viral RNA from individuals suspected of respiratory viral infection consistent with COVID-19 by Their healthcare provider. This test has not been validated in asymptomatic patients. The Xpert Xpress SARS-CoV-2 test is intended for use by qualified and trained operators who are performing tests using either [employer] or [employer] systems and is limited to laboratories that meet the CLIA requirements to perform high and moderate complexity tests. Results are for the simultaneous detection and differentiation of SARS-CoV-2, influenza A, influenza B and RSV nucleic acids in clinical specimens. SARS-CoV-2, influenza A, influenza B and RSV RNA identified by this test are generally detectable in upper respiratory samples during the acute phase of infection. Positive results are Indicative of the presence of the identified virus, but do not rule out bacterial infection or co-infection with other pathogens not detected by this test. Clinical correlation with patient history and other diagnostic information is necessary to determine patient infection status. The agent detected may not be the definite cause of disease. Negative results do not preclude SARS-CoV-2, influenza A, influenza B and RSV infection and should not be used as the sole basis for treatment or other patient management decisions. Negative results must be combined with clinical observations, patient history and epidemiological information. An Invalid result may occur with specimen-associated inhibition unable to be resolved with specimen repeat. Authorizing ProviderResult TypeResult [facility] Evaristo [place] DOMICROBIOLOGY - GENERAL ORDERABLESFinal ResultPerforming OrganizationAddressCity/State/[place] [address], * Light Blue Top (09/09/2025 10:05 AM EST)ComponentValueRef RangeTest Method Analysis TimePerformed AtPathologist SignatureExtra TubeAuto Resulted 09/09/2025 12:02 PM [facility]ITALpecimen (Source) Anatomical Location / LateralityCollection Method / VolumeCollection Time Received TimeBloodVenous blood / Nuruuct9009/09/2025 10:05 AM EST09/09/2025 10:14 AM EST Narrative Authorizing ProviderResult TypeResult StatusLexington Shriners Hospitalveda Loera [place] DOLAB BLOOD ORDERABLESFinal ResultPerforming OrganizationAddressCity/State/ZIP CodePhone Number [address] [address], * Basic Metabolic Panel (09/09/2025 10:05 AM EST)ComponentValueRef RangeTest MethodAnalysis TimePerformed AtPathologist TyayqroebWODXDY009625 - 146 mmol/L 09/09/2025 10:29 AM [facility] CENTERPOTASSIUM3.63.5 - 5.0 mmol/L111/10/2024 10:29 AM [facility] CENTERCHLORIDE [address] - 109 mmol/L111/10/2024 10:29 AM [facility] [place] TXPTCTX2802 - 32 mmol/L111/10/2024 10:29 AM ESTUNIVERSITY HOSPITALS GEAUGA MEDICAL CENTERANION GAP75 - 15 mmol/L111/10/2024 10:29 AM [facility] CENTERBLOOD UREA CYMHZSHB737 - 23 mg/dL09/09/2025 10:29 AM [facility] CENTERCREATININE0.920.40 - 1.00 mg/dL 09/09/2025 10:29 AM [facility] CENTERComment:METHOD TRACEABLE TO IDMS PRYHWVXQYULOWWA1572 - 99 mg/dL09/09/2025 10:29 AM EST [facility] CENTERCALCIUM9.38.5 - 10.5 mg/dL09/09/2025 10:29 AM [facility] MED[facility] CENTEREGFR Non-Race Xsresobjp73>=60 ml/min/1.73sq.m111/10/2024 10:29 AM [facility] Comment: eGFR not reported due to non-numeric value for Creatinine. Reported eGFR is based on the CKD-EPI 2020 equation that does not use a race coefficient. Specimen (Source)Anatomical Location / LateralityCollection Method / Volume Collection TimeReceived TimeBloodVenous blood / UnknownVenipuncture / Unknown 09/09/2025 10:05 AM EST09/09/2025 10:13 AM EST Narrative Authorizing ProviderResult TypeResult StatusMarjose Schmidt [facility] BLOOD ORDERABLESFinal ResultPerforming OrganizationAddressCity/State/ZIP CodePhone Number [facility] [address] [place] [address], * CBC auto differential (09/09/2025 10:05 AM EST)ComponentValueRef RangeTest MethodAnalysis TimePerformed AtPathologist SignatureWBC7.54 - 11 10^9/L 09/09/2025 10:21 AM [facility] CENTERRBC Count4.523.8 - 5.2 10^12/L111/10/2024 10:21 AM [facility] Pnxibinkko64.211.7 - 15.5 g/dL09/09/2025 10:21 AM [facility] CENTERHematocrit39.835 - 47 %09/09/2025 10:21 AM ESTUNIVERSITY HOSPITALS GEAUGA MEDICAL CENTERMCV8880 - 100 fL09/09/2025 10:21 AM [facility] CENTERMCH31.427 - 34 pg09/09/2025 10:21 AM [facility] CENTERMCHC35.632 - 36 g/dL09/09/2025 10:21 AM [facility] CENTERRDW12.511.5 - 15 %09/09/2025 10:21 AM [facility] MED[facility] CENTERPlatelet Owuah973636 - 450 10^9L111/10/2024 10:21 AM [facility]ITALV8.07 - 12 fL09/09/2025 10:21 AM EST [facility]ITALNeutrophils %81.1%09/09/2025 10:21 AM EST [facility] CENTERLymphocytes %13.2%09/09/2025 10:21 AM EST [facility] HOSPITALMonocytes %4.6%09/09/2025 10:21 AM EST [facility] HOSPITALEosinophils %0.8%09/09/2025 10:21 AM EST [facility]ENTERBasophils %0.3%09/09/2025 10:21 AM EST [facility] CENTERNeutrophils Absolute (A)6.11.5 - 6.6 10^9/L 09/09/2025 10:21 AM ESTPROMOUNTAIN VIEW CAMPUSLymphocytes Absolute 1.01.0 - 3.5 10^9/L111/10/2024 10:21 AM ESTUN[facility] Monocytes Absolute0.30.0 - 0.9 10^9/L111/10/2024 10:21 AM ESTPROMEDIMORENO VALLEY COMMUNITY HOSPITALEosinophils Absolute0.10.0 - 0.4 10^9/L111/10/2024 10:21 AM ESTUNIVERSITY HOSPITALS GEAU[facility] MEDICAL CENTERBasophils Absolute0.00.0 - 0.2 10^9/L 09/09/2025 10:21 AM [facility] CENTERDifferential Type AUTOMATED SMUVRNRGGFZN28/20/2025 10:21 AM [facility] (Source)Anatomical Location / LateralityCollection Method / VolumeCollection TimeReceived TimeBloodVenous blood / UnknownVenipuncture / Mlbrudn6409/09/2025 10:05 AM EST09/09/2025 10:13 AM EST Narrative Authorizing ProviderResult TypeResult StatusIfrah Schmidt DOLAB BLOOD ORDERABLESFinal ResultPerforming OrganizationAddressCity/[facility]/ZIP CodePhone Number [address] [place] [address], [place] * POCT , urine (09/09/2025 9:57 AM EST)ComponentValueRef RangeTest MethodAnalysis TimePerformed AtPathologist SignaturePOC Urine NegativeNegative, Zzpodxxnzueol85/20/2025 10:02 AM [facility] (Source)Anatomical Location / LateralityCollection Method / VolumeCollection TimeReceived AeovJbcmr57/20/2025 9:57 AM EST 09/09/2025 10:02 AM EST Narrative Authorizing ProviderResult TypeResult Toñito Schmidt DOPOINT OF CARE TEST ORDERABLESFinal ResultPerforming OrganizationAddressCity/State/ZIP Code Phone Number [address] [place] [address], [place] * (ABNORMAL) POCT Nursing Urine Macroscopic UA (09/09/2025 9:55 AM EST)Component ValueRef RangeTest MethodAnalysis TimePerformed AtPathologist SignaturePO Urine Specific [place]>=1.030(A)1.010, 1.015, 1.020, 1.4152509/09/2025 9:56 AM [facility] Urine Leukocyte EsteraseTrace(A) Sokoizrl65/20/2025 9:56 AM ESTPROFR[facility]NO [facility] Urine VsxqduoDidatlryEcyddetn76/20/2025 9:56 AM [facility]PROFR[facility] Urine pH5.55.0, 6.0, 6.5, 7.0, 7.5, 8.0, 8.5, 5. 9:56 AM ESTPROFRESNO [facility] Urine Lbxtjfv370 mg/dL(A)Negative 09/09/2025 9:56 AM ESTPROFR[facility]NO [facility] Urine Glucose ZacnnshsZprbjtra70/20/2025 9:56 AM [facility] Urine BtidofjNgylqperLgqblfru42/20/2025 9:56 AM ESTPROFRESNO [facility] Urine Urobilinogen0.2 E.U./dL09/09/2025 9:56 AM ESTPROFRESNO [facility] Urine GdkqeyomxGmhdnniqEywzxsaa46/20/2025 9:56 AM [facility] Urine Blood/HGBTrace(A)Negative 09/09/2025 9:56 AM [facility] (Source) Anatomical Location / LateralityCollection Method / VolumeCollection Time Received TozcJvtfa85/20/2025 9:55 AM EST09/09/2025 9:56 AM EST Narrative Authorizing ProviderResult TypeResult StatusIfrah Schmidt DOPOINT OF CARE TEST ORDERABLESFinal ResultPerforming OrganizationAddressCity/State/ZIP Code Phone Number [address] [address], [place] * Extra Urine Culture (09/09/2025 9:53 AM EST)ComponentValueRef RangeTest Method Analysis TimePerformed AtPathologist SignatureExtra TubeAuto Resulted 09/09/2025 11:01 AM [facility] (Source) Anatomical Location / LateralityCollection Method / VolumeCollection Time Received TimeUrineUrine specimen collection, clean catch / Tdlwisn4609/09/2025 9:53 AM EST09/09/2025 10:14 AM EST Narrative Authorizing ProviderResult TypeResult StatusIfrah Schmidt DOURINE ORDERABLES Final ResultPerforming OrganizationAddressCity/[facility] CodePhone Number [address] [address], [place] * Extra Urine (09/09/2025 9:53 AM EST)ComponentValueRef RangeTest MethodAnalysis TimePerformed AtPathologist SignatureExtra TubeAuto Mqzxynaq34/20/2025 11:01 AM ESTPROMEDICA [facility]PRISE [facility]LEY COMM[facility]ITY HOSPITALpecimen (Source)Anatomical Location / LateralityCollection Method / VolumeCollection TimeReceived TimeUrineUrine / Vjaswtj1209/09/2025 9:53 AM EST09/09/2025 10:14 AM EST Narrative Authorizing ProviderResult TypeResult StatusMarjose Evaristo Schmidt DOURINE ORDERABLES Final ResultPerforming OrganizationAddressCity/State/ZIP CodePhone Number [facility] [address] [place] [address], documented in this encounter Visit Diagnoses Diagnosis Gastroenteritis- Primary Other and unspecified noninfectious gastroenteritis and colitis documented in this encounter Administered Medications Medication OrderMAR ActionAction DateDoseRateSite sodium chloride 0.9 % flush 3 mL 3 mL, intravenous, As needed, line care, before and after each intermittent use, Starting on 09/09/25 at 0951 Medication OrderMAR ActionAction DateDoseRateSite famotidine (PF) (PEPCID) injection 20 mg 20 mg, intravenous, Once, On 09/09/25 at 0953, For 1 dose, Dilute to total volume of 5 mL with 0.9% sod chl and administer IVP over 2 minutes. Given09/09/2025 10:07 AM EST20 mg ondansetron (PF) (ZOFRAN) injection 4 mg 4 mg, intravenous, Once, On 09/09/25 at 0953, For 1 dose, Intravenous administration preferred to be given over 2-5 minutes. Given09/09/2025 10:13 AM EST4 mg ondansetron (PF) (ZOFRAN) injection 4 mg 4 mg, intravenous, Once, On 09/09/25 at 1218, For 1 dose, Intravenous administration preferred to be given over 2-5 minutes. Given09/09/2025 12:21 PM EST4 mg sodium chloride 0.9 % bolus 1,000 mL, intravenous, at 984 mL/hr, Administer over 61 Minutes, Once, On 09/09/25 at 0953, For1 dose New Bag12/ 10:19 AM EST1,000 mL984 mL/hrdocumented in this encounter Active and Recently Administered Medications Times are shown in EST.Medication Order/ famotidine (PF) (PEPCID) injection 20 mg (COMPLETED) 20 mg, intravenous, Once, On 09/09/25 at 0953, For 1 dose, Dilute to total volume of 5 mL with 0.9% sod chl and administer IVP over 2 minutes. * 1007 (Given - Provider: Khushbu Ford, RN) ondansetron (PF) (ZOFRAN) injection 4 mg (COMPLETED) 4 mg, intravenous, Once, On 09/09/25 at 0953, For 1 dose, Intravenous administration preferred to be given over 2-5 minutes. * 1013 (Given - Provider: Khushbu Ford, RN) ondansetron (PF) (ZOFRAN) injection 4 mg (COMPLETED) 4 mg, intravenous, Once, On 09/09/25 at 1218, For 1 dose, Intravenous administration preferred to be given over 2-5 minutes. * 1221 (Given - Provider: Diane Olson, RN) sodium chloride 0.9 % bolus (COMPLETED) 1,000 mL, intravenous, at 984 mL/hr, Administer over 61 Minutes, Once, On 09/09/25 at 0953, For1 dose * 1019 (New Bag - Provider: Khushbu Ford, RAFFY) * 1120 (Stop Bag - Provider: Diane Olson, RN) Medication Order/ sodium chloride 0.9 % flush 3 mL 3 mL, intravenous, As needed, line care, before and after each intermittent use, Starting on 09/09/25 at 0951 documented in this encounter Additional Health Concerns InfectionOnset DateLast IndicatedResolved TimeRespiratory Rule-Out09/09/2025 10:56 AM ESTAssessmentNoted TimePHQ-9 Depression Total Score: 410 11:30 AM EDTdocumented as of this encounter Care Teams Team MemberRelationshipSpecialtyStart DateEnd Date Ema Strong MD [address] [place] [address] PCP - GeneralFamily Blrpmvac87/20/25documented as of this encounter
[2025-09-09 13:41] VITALS: BP 109/66; PULSE 71; O2SAT 99; BMI 24.0
--- NOTE | 2025-09-09 13:55 | ED_ITS ---
HPI HPI - General Adult General Chief complaint: Abdominal Pain Stated complaint: VOMITING, HEADACHE, ABDOMINAL PAIN, LEG PAIN Time Seen by Provider: 09/09/25 13:48 Source: patient Mode of arrival: walk-in Limitations: no limitations History of Present Illness HPI narrative: 25-year-old female presented to the emergency department for nausea and vomiting. She has not had diarrhea and she has been sick since yesterday morning. No hematemesis. She has not had a known fever. No known ill contacts. She was at another hospital's emergency department this morning and she was given IV fluids and Zofran. She does not feel any better. Related Data Previous Rx's ?Medication ?Instructions ?Recorded cephalexin 500 mg capsule 500 mg PO TID 7 days #21 cap s 09/09/25 Allergies Allergy/AdvReac Type Severity Reaction Status Date / Time No Known Drug Allergies Allergy Verified 09/09/25 13:41 Opioid HPI Opioid Management Most Recent Opioid Data: Last Pain Scale 7 Today, 13:41 Review of Systems ROS Narrative A ten point review of systems is negative except as noted above. PFSH PFSH Social History Little interest or pleasure in doing things: not at all Feeling down, depressed, or hopeless: not at all Exam Narrative Exam Narrative: Nurses note and vital signs reviewed General:The patient appears no acute distress. Skin:Warm, dry, no pallor noted.There is no rash noted. Head:Normocephalic, atraumatic Eye: Normal conjunctiva, no drainage Ears, Nose, Mouth, and Throat: oral mucosa is moist. Nares patent. Cardiovascular:Regular Rate and Rhythm Respiratory:Patient is in no distress, no accessory muscle use, lungs are clear to auscultation, no wheezing, rales or rhonchi Back:non-tender GI: Soft and nontender Musculoskeletal: The patient has no evidence of calf tenderness, no pitting edema, symmetrical pulses noted bilaterally Neurological:A&O, normal speech Psychiatric:Cooperative Constitutional Vital Signs, click to edit/add: Last Vital Signs Temp 98.3 F 09/09/25 14:37 Pulse 71 09/09/25 13:41 Resp 16 09/09/25 13:41 BP 109/66 09/09/25 13:41 Pulse Ox 99 09/09/25 13:41 O2 Del Method Room Air 09/09/25 13:41 Course Vital Signs Vital signs: Vital Signs Pulse Rate 71 09/09/25 13:41 Respiratory Rate 16 09/09/25 13:41 Blood Pressure 109/66 09/09/25 13:41 Pulse Oximetry 99 09/09/25 13:41 Oxygen Delivery Method Room Air 09/09/25 13:41 Temperature 98.3 F 09/09/25 14:37 Pulse Rate 71 09/09/25 13:41 Respiratory Rate 16 09/09/25 13:41 Blood Pressure 109/66 09/09/25 13:41 Pulse Oximetry 99 09/09/25 13:41 Oxygen Delivery Method Room Air 09/09/25 13:41 Medical Decision Making MDM Narrative Medical decision making narrative: She was given IV fluids. Blood work is nonspecific. Her BUN is 9 and the creatinine 0.87. She appears to have a mild urinary tract infection was given IV Rocephin and prescribed Keflex. Treatment diagnosis and follow-up were discussed with the patient. Differential Diagnosis Differential Diagnosis: Gastroenteritis, nausea and vomiting, dehydration Lab Data Lab results reviewed: Yes I reviewed the patient's lab results Labs: Lab Results 09/09/25 09/09/25 Range/Units 14:00 14:06 WBC 7.3 (4.0-11.0) 10^3/uL RBC 4.48 (4.20-5.40) 10^6/uL Hgb 13.8 (12.0-16.0) g/dL Hct 40.9 (36.0-48.0) % MCV 91.3 (81.0-99.0) fL MCH 30.8 (26.7-34.0) pg MCHC 33.7 (29.9-35.2) g/dL RDW 12.1 (11.0-15.0) % Plt Count 201 (150-450) 10^3/uL MPV 9.5 (9.5-13.5) fL Seg Neuts % (Manual) 91.0 H (43.0-75.0) Lymphocytes % (Manual) 6.0 L (20.5-60.0) % Monocytes % (Manual) 3.0 (1.7-12.0) % Eosinophils % (Manual) 0.0 L (0.9-7.0) % Basophils % (Manual) 0.0 L (0.2-2.0) % Neutrophils # (Manual) 6.64 H (1.4-6.5) 10^3/uL Lymphocytes # (Manual) 0.43 L (1.20-3.80) 10^3/uL Monocytes # (Manual) 0.21 L (0.30-0.80) 10^3/uL Eosinophils # (Manual) 0.00 (0.00-0.70) 10^3/uL Basophils # (Manual) 0.00 (0.00-0.10) 10^3/uL Sodium 143 (136-145) mmol/L Potassium 3.7 (3.5-5.1) mmol/L Chloride 106 (98-107) mmol/L Carbon Dioxide 28.4 (21.0-32.0) mmol/L Anion Gap 12.3 BUN 9.0 (7.0-18.0) mg/dL Creatinine 0.87 (0.55-1.02) mg/dL Est GFR ( Amer) >60 (>=60 mL/min/1.73m^2) Est GFR (Non-Af Amer) >60 (>=60 mL/min/1.73m^2) BUN/Creatinine Ratio 10.3 Glucose 102 (74-106) mg/dL Calcium 8.7 (8.5-10.1) mg/dL Serum HCG, Qual Negative (NEGATIVE) Urine Color Lt. yellow (YELLOW) Urine Clarity Clear (CLEAR) Urine pH 6.0 (5.0-9.0) Ur Specific [place] 1.020 (1.005-1.025) Urine Protein Negative (NEG/TRACE) mg/dL Urine Glucose (UA) Negative (NEGATIVE) mg/dL Urine Ketones Trace A (NEGATIVE) mg/dL Urine Occult Blood Negative (NEGATIVE) Urine Nitrite Negative (NEGATIVE) Urine Bilirubin Negative (NEGATIVE) Urine Urobilinogen 0.2 (0.2-1.0) EU/dL Ur Leukocyte Esterase Small A (NEGATIVE) Urine RBC 0-2 (0-2) #/HPF Urine WBC 5-10 A (NONE SEEN) #/HPF Ur Squamous Epith Cells Moderate A (NONE/RARE) #/LPF Urine Crystals None seen (None Seen) #/HPF Urine Bacteria Moderate A (NONE SEEN) #/HPF Urine Casts None seen (NONE SEEN) #/LPF Urine Mucus Trace A (NONE SEEN) Ur Culture Indicated? Yes-[facility] [place] Discharge Plan Discharge Chief Complaint: Abdominal Pain Clinical Impression: Nausea & vomiting, Urinary tract infection Patient Disposition: Home, Self-Care Time of Disposition Decision: 15:12 Condition: Good Mode of Transportation: Private Vehicle Prescriptions / Home Meds: New cephalexin 500 mg capsule 500 mg PO TID 7 Days Qty: 21 0RF Print Language: German Instructions: Urinary Tract Infection in Women (ED), Acute Nausea and Vomiting (ED) Referrals: SYED RIZO [Primary Care Provider, Family Practice] - 1 week
--- OUTSIDE RECORDS SUMMARY | 2025-09-09 14:10 | XMS_ITS | Clinical Summary ---
Author Organization [facility] Address [address], [address] [place] [address] Care Team Providers Care Clinical Data Research Name Role Phone Ema Strong MD Primary Care Provider [phone] Allergies No known active allergies Medications MedicationSigDispense QuantityRefillsLast FilledStart DateEnd DateStatus norethindrone-ethinyl estradiol (10/10) 1-20 MG-MCG per tablet Take 1 tablet by mouth dailyActive naproxen (NAPROSYN) 250 MG tablet Take 1 tablet with Zofran and Benadryl at onset of acute migraine. May repeat in 6 hours x 1. 15 tablet Active diphenhydrAMINE (BENADRYL) 25 MG tablet Take 1 tablet with Zofran and Naproxen at onset of acute migraine. May repeat in 6 hours x 1. 15 tablet Active ondansetron (ZOFRAN) 4 MG tablet Take 1 tablet with Benadryl and Naproxen at onset of acute migraine. May repeat in 6 hours x 1. 15 tablet Active coenzyme Q10 100 MG CAPS capsule Indications:Nonintractable headache, unspecified chronicity pattern, unspecified headache type,POTS (postural orthostatic tachycardia syndrome),Migraine without aura and without status migrainosus, not intractableTake 3 capsules by mouth every morning 90 capsule Active cyproheptadine (PERIACTIN) 4 MG tablet Indications:Migraine without aura and without status migrainosus, not intractableTake 2 tablets by mouth nightly 60 tablet Active vitamin D (CHOLECALCIFEROL) 1000 UNIT TABS tablet Indications:Migraine without aura and without status migrainosus, not intractable,Vitamin D deficiencyTake 1 tablet by mouth daily 30 tablet Active Active Problems ProblemNoted DateDiagnosed DateMigraine without aura and without status migrainosus, not vzmeoyecork15/16/8560Lfqonfywdaejjmvsjqvj18/16/2018POTS (postural orthostatic tachycardia syndrome)10/06/20176299Vzznzinqr60/16/2018 Nonintractable zefnnryf88/16/2018MVP (mitral valve prolapse)11/07/2015PVC (premature ventricular contraction)11/07/2015PAC (premature atrial contraction) 11/07/2015Mitral valve casolutt72/01/2014Chest pain06/21/2014 Social History Tobacco UseTypesPacks/DayYears UsedDateSmoking Tobacco: Passive Smoke Exposure - Never SmokerSmokeless Tobacco: Never Comments:mom smokes Alcohol UseStandard Drinks/WeekCommentsNo0 (1 standard drink = 0.6 oz pure alcohol)CommentsNoSex and Gender InformationValueDate RecordedSex Assigned at BirthNot on fileLegal GtjHbvwni34/10/2013 10:12 PM ESTGender IdentityNot on fileSexual OrientationNot on file Last Filed Vital Signs Vital SignReadingTime TakenCommentsBlood Mswqxqit476/7707 8:10 AM EDT Mwhpb512304/01/2019 8:10 AM EDTTemperature--Respiratory Rate--Oxygen Saturation 100%11/07/2015 12:57 PM ESTInhaled Oxygen Concentration--Jirvqi97.8 kg (123 lb) 04/01/2019 8:10 AM UXMEqzkwp292.6 cm (5' 4 )04/01/2019 8:10 AM EDTBody Mass Index21.1107 8:10 AM EDT Plan of Treatment Not on file Insurance Care Teams Team MemberRelationshipSpecialtyStart DateEnd Ema Dunn MD PCP - GeneralFamily Medicine04/07/17
--- OUTSIDE RECORDS SUMMARY | 2025-09-09 14:10 | XMS_ITS | Encounter Summary ---
Author Organization [employer] Address [id number] [place] [address] Care Team Providers Care Delivery Nurse Name Role Phone Unavailable Primary Care Provider Unavailabl e Encounter Details DateTypeDepartmentCare Team (Latest Contact Info)Aghbspwivdr33/06/2025Travel Social History Tobacco UseTypesPacks/DayYears UsedDateSmoking Tobacco: NeverPassive [...] relatives?More than three times a week 09/16/2022ttends Christian ServicesNot on file09/16/2022o you belong to any clubs or organizations such as baptist groups, unions, fraternal or athletic shalonda ups, or school groups?No09/16/2022ttends Club or Organization MeetingsNot on file09/16/2022Marital StatusNot on file09/16/2022UDIT-CAnswerDate RecordedQ1: How often do you have a drink containing alcohol?Monthly or less09/16/2022 Average Number of DrinksNot on file09/16/2022Frequency of Binge DrinkingNot on file2Overall Financial Resource Strain (CARDIA)AnswerDate RecordedHow hard is it for you to pay for the very basics like food, housing, medical care, and heating?Not hard at all07/06/2023HQ-2AnswerDate RecordedTotal Score4 07/06/2023[facility] [place] [facility] - Occupational Stress QuestionnaireAnswerDate [...] living?No06/13/2023Edinburgh Depression ScaleAnswer Date RecordedEdinburgh Depression Scale Mwhep93210/05/2023The thought of harming myself has occurred to me.Never10/05/2023Housing InstabilityAnswerDate RecordedAre you worried or concerned that in the next two months you may not have stable housing that you own, rent or stay in as a part of a household?No 08/08/2023hildcareAnswerDate RecordedDo problems getting child care provider make it difficult for you to work [...] InformationValueDate RecordedSex Assigned at BirthNot on fileLegal NzzJdigsh86/04/2015 12:00 PM EDTGender IdentityNot on fileSexual OrientationNot on filedocumented as of this encounter Plan of Treatment Not on file documented as of this encounter Visit Diagnoses Not on filedocumented in this encounter Additional Health Concerns AssessmentNoted TimePHQ-9 Depression Total Score: 410 11:30 AM EDT documented as of this encounter
--- OUTSIDE RECORDS SUMMARY | 2025-09-09 14:10 | XMS_ITS | Clinical Summary ---
Author Organization [facility] [employer] tem Address [id number] [address] [place] [address] Care Team Providers Care Microwave Engineer Name Role Phone Ema Strong MD Primary Care Provider [phone] Allergies Active AllergyReactionsCriticalityNoted VuooAdrkvsylYubmeszvIhsqCvh32/13/2023 Medications MedicationSigDispense QuantityRefillsLast FilledStart DateEnd DateStatus ibuprofen (MOTRIN) 800 mg tablet Take 1 tablet (800 mg total) by mouth every 8 (eight) hours as needed for pain. 30 tablet 4Active Additional Information Patient not taking.Reported on 11/17/2023 ondansetron ODT (ZOFRAN ODT) 4 mg disintegrating tablet Dissolve 1 tablet (4 mg total) on tongue every 6 (six) hours as needed for nausea or vomiting for up to 30 days. 10 tablet 501/6Active Active Problems ProblemNoted DateDiagnosed DateComplicated urinary tract kluxbvnfp46/22/2023 Request for wnaxatnjpjjne22/08/2023 Overview (2023): Medicaid consent form signed 07/29 Thrombocytopenia affecting zegnmhfhg73/06/2023 Overview (07/27/2023): 07/22/23 142K History of mitral valve tuueayee51/30/2023omplicated UTI (urinary tract infection)07/16/2023UTI in , antepartum, third iluowgnzi28/26/2023 Dxwugsoqmzwdsl34/06/2023Urologic youeaflcf40/02/2023 Overview (06/26/2023): 1. Recurrent symptomatic right hydronephrosis of ; status post 08/05/2019 right ureteroscopy, cystoscopy, stent placement Dr. Lucille Avalos with findings of no stone; status post 08/08/2019 cystoscopic right stent removal Dr. Lucille Avalos secondary to dramatic intolerance of stent; initiation right percutaneous nephrostomy 08/10/2019 with subsequent exchanges until completion;absent from requested 3 months follow-up from 12/13/2019 until May 2023; right nephrostomy tube placement 05/23/2023 during subsequent ; boyfriend Zackery; mother Mary 2. History Pseudomonas UTI 2018 3. Intolerance of ureteral stents with Dr. Avalos 2018 Intrauterine oeyuqdfdi02/31/2023 Overview (07/27/2023): [x] first trimester labs [x] cfDNA, carrier screening [x] 28 week labs COVID Vaccinated 2021 [ ] tdap [ ] GBS Heartburn during in second abkthckwf18/21/2023 Overview (05/11/2023): Carafate RX sent to pharmacy 05/11/23 Maternal varicella, non-revcvi8802/06/2023Hx of hemorrhage, currently uariavyr38/19/2023 Overview (07/09/2023): requiring hemabate x 1, pitocin, TXA x 1, Cytotec x1 Hx of pyelonephritis during cisbqlvwv74/19/2023 Overview (08/03/2023): R PCNT placed 05/2023 Recurrent pyelonephritis (06/26/23, 07/16/23) R PCNT replaced 07/16 Urine culture 07/11 & 07/15 positive for enterobacter cloacae (PCNT) Completed 10 days IV Cefepime on 07/25 Admitted 07/27-8 for suspected UTI due to flank pain - urine cultures negative Discharged on Bactrim for suppression POTS (postural orthostatic tachycardia syndrome)11/08/2019 Overview (07/27/2023): Followed by Dr. Rivera See his 07/20/23 note Pure ewwqbpvnpcewciptatbx71/14/2018Non-rheumatic mitral emnkjnaizvuyd59/05/2018 Migraine without aura and without status migrainosus, not yzkhkhjlxsf16/16/2018 01/07/20235727Vtttxrwbaufpyg25/23/2017Mitral valve ptvoxjaj61/01/2017 Overview (07/09/2023): Echo 05/2023: The leaflets are moderately thickened. The middle segment (A2) of the anterior leafletis prolapsed. The middle segment (P2) of the posterior leaflet is prolapsed. There is mild to moderate regurgitation with a posteriorly directed jet. There is no evidence of mitral valve stenosis.here is mild concentric increased wall thickness/hypertrophy. Systolic function is normal with an ejection fraction of 60-65%. Vitamin D hjamlfkrup08/26/2016 Resolved Problems ProblemNoted DateDiagnosed DateResolved DateAntepartum renal meytgss3005/27/2023 08/03/2023 Overview (08/03/2023): 05/23/23 right percutaneous nephrostomy tube placement for right renal colic Recurrent UTI and pyelonephritis since PCNT placement in May 2023 Nephrostomy tube replaced 07/16 Last positive urine culture 07/15 (PCNT): enterobacter cloacae Completed 10 days of IV Cefepime on 07/25 Presented with R flank pain Urine culture 07/27 negative x 2 (bladder and PCNT) Blood cultures 07/27 no growth to date ID consulted - discontinued meropenum in setting of negative urine cultures Retroperitoneal US without obvious concerns Hydronephrosis, right Encounters DateTypeDepartmentCare IacqBvhxjjebcyi63/20/2025 9:42 AM EST - 09/09/2025 12:30 PM ESTEmergency [facility] [address] [place] [address] Ifrah Schmidt DO Gastroenteritis (Primary Dx) Discharge Disposition: Home09/09/20255876Ybmwur62/06/2025 12:07 PM EST - 08/26/2025 1:18 PM ESTEmergency [facility] [address] [place] [address] Saeed Friend MD Bronchial irritation (Primary Dx) Discharge Disposition: Home08/26/2025Travelfrom Last 3 Months Immunizations ImmunizationAdministration DatesNext MtpYBzO6905/23/2008,05/02/2004DTaP, Iifzooxomuk61/14/2003,2002,2002HPV Mbjobzlxjxto00/31/2015,03/19/2015 YSI382Hep A, 2 Dose09/20/2015,03/19/2015Hep B / HIB05/02/2004Hep B, Adolescent or Bcwufukfs84/06/2003,2002HiB02/01/2003,2002IPV 05/23/2008Influenza Whole07/12/2012Influenza, Im Pediatric (Pf)09/20/2015 Influenza, Im Trivalent Fqtqswpsykdn30/29/3240JCK6205/23/2008,05/02/2004 Meningococcal Kyggvmgmy00/31/2484Mpfkkhcfikw81/13/2023(Deferred: Other - getting as outpatient, not available in our system yet)Pneumococcal Mtnkqwzob09/10/2003, 2002Polio, Krqxzixxqhx00/14/2003,2002,2002Tdap109/26/2022, 07/15/2023(Deferred: Patient decision),03/19/20153294Dhgicyrve44/02/2008,05/02/2004 Family History Medical HistoryRelationNameCommentsAsthmaBrotherOtherFatherMVAHypertension Maternal AuntNo Known ProblemsMaternal GrandfatherNo Known ProblemsMaternal GrandmotherNo Known ProblemsMotherAsthmaPaternal GrandfatherCancerPaternal GrandfatherLUNGHeart attackPaternal Grandfatherin his 50sHeart diseasePaternal GrandfatherHypertensionPaternal GrandfatherNo Known ProblemsPaternal Grandmother No Known ProblemsSisterAnesthesia problemsNeg HxArrhythmiaNeg HxClotting disorderNeg HxDiabetesNeg HxHeart defectNeg HxHigh CholesterolNeg HxSeizuresNeg HxStrokeNeg HxSudden deathNeg HxThyroid IssuesNeg HxRelationNameStatusComments BrotherAliveFatherDeceasedMaternal AuntMaternal GrandfatherAliveMaternal GrandmotherAliveMotherAlivePaternal GrandfatherAlivePaternal GrandmotherAlive SisterAlive Social History Tobacco UseTypesPacks/DayYears UsedDateSmoking Tobacco: NeverPassive [...] relatives?More than three times a week 09/16/2022ttends Adventism ServicesNot on file09/16/2022o you belong to any clubs or organizations such as baptism groups, unions, fraternal or athletic shalonda ups, [...] and heating?Not hard at all07/06/2023HQ-2AnswerDate RecordedTotal Score4 07/06/2023Finjordan [facility] [place] of Occupational Health - Occupational Stress QuestionnaireAnswerDate [...] living?No06/13/2023Edinburgh Depression ScaleAnswer Date RecordedEdinburgh Depression Scale Ukjar50910/05/2023The thought of harming myself has occurred to me.Never10/05/2023Housing InstabilityAnswerDate RecordedAre you worried or concerned that in the next two months you may not have stable housing that you own, rent or stay in as a part of a household?No 08/08/2023hildcareAnswerDate RecordedDo problems getting childcare provider make it difficult for you to [...] InformationValueDate RecordedSex Assigned at BirthNot on fileLegal HqzLpught26/04/2015 12:00 PM EDTGender IdentityNot on fileSexual OrientationNot on file Last Filed Vital Signs Vital SignReadingTime TakenCommentsBlood Qmmbvbyf561/7109/09/2025 11:43 AM EST Bqoxc149409/09/2025 11:43 AM DQMFfhnjhmtbhx62.4 ??C (97.6 ??F)09/09/2025 9:46 AM ESTRespiratory Frgl893411/10/2024 11:43 AM ESTOxygen Dqkuuykfeg48%09/09/2025 11:43 AM ESTInhaled Oxygen Concentration--Lkqhvq30.5 kg (140 lb)09/09/2025 9:46 AM EST Dxskvl130.6 cm (5' 4 )08/26/2025 12:14 PM ESTBody Mass Index24.03110/27/2024 12:14 PM EST Plan of Treatment Health MaintenanceDue DateLast DoneCommentsPap Smear3Depression Wwecyrsxw69/15/509150/, 07/06/2023OVID-19 Vaccine ( season) /, 11/11/2021Influenza Rvqrpgc34, 07/12/2012, 08/19/2011Tobacco Iambnejmw18dult BMI Screening DTaP,Tdap and Td Vaccines (8 - Td or Tdap)07/27/2033 07/27/2023, 03/19/2015, 05/23/2008, Additional history exists Medical Devices ImplantedTypeAreaManufacturerDevice IdentifierShelf Expiration DateModel / Serial / LotStnt Polaris Loop 6x20 - [id number] - [id number] Implanted:Qty: 1 on 08/05/2019 by Lucille [facility]valos MD [facility]ENTERtentRight: [employer] Pkhljsqzti67/25/[id number] / [id number] / [id number] Procedures Procedure NamePriorityDate/TimeAssociated DiagnosisCommentsSARS/FLU A+B/RSV BY NAAT/MOLECULAR (M4RT COLLECTION TUBE)STAT111/10/2024 10:06 AM EST EXTRA TUBES BLUE NYHPafxmys22/20/2025 10:05 AM EST EXTRA ACUTMGefizui43/20/2025 10:05 AM EST BASIC METABOLIC GSGROXNQB02/20/2025 10:05 AM EST CBC WITH AUTO KWEYIGLOAVCAKPCB41/20/2025 10:05 AM EST POCT , URINE (NUCG)Tfdmlcw7409/09/2025 9:57 AM EST POCT NURSING URINE MACROSCOPIC PALoudwrp90/20/2025 9:55 AM EST ER EXTRA URINE CLYXWMSGXNZ14/20/2025 9:53 AM EST ER EXTRA KCAYNNBKQ62/20/2025 9:53 AM EST XR CHEST 1 XGIVTS2008/26/2025 12:44 PM EST EXTRA TUBES LAVENDER KUJEwmsfnr53/06/2025 12:27 PM EST EXTRA TUBES PST PYCPfqcnmo12/06/2025 12:27 PM EST EXTRA SDPUQHrfmnym48/06/2025 12:27 PM EST D-APKHMBBMI75/06/2025 12:27 PM EST from Last 3 Months Results * SARS/FLU A+B/RSV by NAAT/Molecular (M4RT Collection Tube) (09/09/2025 10:06 AM EST)ComponentValueRef RangeTest MethodAnalysis TimePerformed AtPathologist SignatureFLU A SMBGthccyfvQrlmixtm89/20/2025 10:56 AM ESTPROCOLLEGE MEDICAL CENTERFLU B XVNJqiprpacHxqlzhpc17/20/2025 10:56 AM ESTPROCOLLEGE MEDICAL CENTERRSV BY OZPYseuhgxjVxdjvywj87/20/2025 10:56 AM EST [facility]ARS COV 2 BY PCRNot DetectedNot Detected 09/09/2025 10:56 AM ESTKETTERING HEALTH MAIN CAMPUSpecimen (Source) Anatomical Location / LateralityCollection Method / VolumeCollection Time Received TimeSwabNasopharyngeal structure / Vpqgduu6109/09/2025 10:06 AM EST 09/09/2025 10:14 AM EST Narrative [facility] - 09/09/2025 10:56 AM EST The Xpert Xpress SARS-CoV-2/Flu/RSV Plus test is a rapid, multiplexed real-time RT-PCR test intended for the simultaneous qualitative detection and differentiation of SARS-CoV-2, influenza A, influenza B and respiratory syncytial virus (RSV) viral RNA from individuals suspected of respiratory viral infection consistent with COVID-19 by Their healthcare provider. This test has not been validated in asymptomatic patients. The XpAvincel Consulting Xpress SARS-CoV-2 test is intended for use by qualified and trained operators who are performing tests using either [employer] or [employer] systems and is limited to laboratories that [...] resolved with specimen repeat. Authorizing ProviderResult TypeResult StatusIfrah Schmidt [facility] HOSPITALICROBIOLOGY - GENERAL ORDERABLESFinal ResultPerforming OrganizationAddressCity/State/ZIP Code Phone Number [facility] [address] [place] [address], * Light Blue Top (09/09/2025 10:05 AM EST)ComponentValueRef RangeTest Method Analysis TimePerformed AtPathologist SignatureExtra TubeAuto Resulted 09/09/2025 12:02 PM ESTPROMEDICA COMMUNITY HOSPITAL OF SAN BERNARDINOpecimen (Source) Anatomical Location / LateralityCollection Method / VolumeCollection Time Received TimeBloodVenous blood / Yctgipu8609/09/2025 10:05 AM EST09/09/2025 10:14 AM EST Narrative Authorizing ProviderResult TypeResult StatusIfrah Schmidt DOLAB BLOOD ORDERABLESFinal ResultPerforming OrganizationAddressCity/State/ZIP CodePhone Number [facility] [address] [place] [address], * CBC auto differential (09/09/2025 10:05 AM EST)ComponentValueRef RangeTest MethodAnalysis TimePerformed AtPathologist SignatureWBC7.54 - 11 10^9/L 09/09/2025 10:21 AM [facility]ITALRBC Count4.523.8 - 5.2 10^12/L111/10/2024 10:21 AM [facility] Spmuahapin11.211.7 - 15.5 g/dL09/09/2025 10:21 AM [facility]ITALHematocrit39.835 - 47 %09/09/2025 10:21 AM [facility]ITALMCV8880 - 100 fL09/09/2025 10:21 AM [facility]ITALMCH31.427 - 34 pg09/09/2025 10:21 AM [facility]ITALMCHC35.632 - 36 g/dL09/09/2025 10:21 AM [facility]ITALRDW12.511.5 - 15 %09/09/2025 10:21 AM [facility]OSPITALPlatelet Dezjc543721 - 450 10^9/L111/10/2024 10:21 AM [facility]ITALMPV8.07 - 12 fL09/09/2025 10:21 AM EST [facility]Neutrophils %81.1%09/09/2025 10:21 AM EST [facility]OYLymphocytes %13.2%09/09/2025 10:21 AM EST [facility]Monocytes %4.6%09/09/2025 10:21 AM EST [facility]YEosinophils %0.8%09/09/2025 10:21 AM EST [facility]Basophils %0.3%09/09/2025 10:21 AM EST [facility]OYNeutrophils Absolute (A)6.11.5 - 6.6 10^9/L 09/09/2025 10:21 AM [facility]OSPITALLymphocytes Absolute 1.01.0 - 3.5 10^9/L111/10/2024 10:21 AM [facility] Monocytes Absolute0.30.0 - 0.9 10^9/L111/10/2024 10:21 AM [facility]OS[facility]ITALEosinophils Absolute0.10.0 - 0.4 10^9/L111/10/2024 10:21 AM [facility]PITALBasophils Absolute0.00.0 - 0.2 10^9/L 09/09/2025 10:21 AM [facility]OSPITALDifferential Type AUTOMATED MIUQLONVZTUQ03/20/2025 10:21 AM [facility]ITALpecimen (Source)Anatomical Location / LateralityCollection Method / VolumeCollection TimeReceived TimeBloodVenous blood / UnknownVenipuncture / Usizqpk2509/09/2025 10:05 AM EST09/09/2025 10:13 AM EST Narrative Authorizing ProviderResult TypeResult StatusMarsha L Roxana DOLAB BLOOD ORDERABLESFinal ResultPerforming OrganizationAddressCity/State/ZIP CodePhone Number [facility] [address] [place] [address], * Basic Metabolic Panel (09/09/2025 10:05 AM EST)ComponentValueRef RangeTest MethodAnalysis TimePerformed AtPathologist QufpbqjtwMMNBHT470378 - 146 mmol/L 09/09/2025 10:29 AM [facility]OSPITALPOTASSIUM3.63.5 - 5.0 mmol/L111/10/2024 10:29 AM [facility]OSPITALCHLORIDE [address] - 109 mmol/L111/10/2024 10:29 AM [facility] [place] BTVIFRJ4901 - 32 mmol/L111/10/2024 10:29 AM [facility]OSPITALANION GAP75 - 15 mmol/L111/10/2024 10:29 AM [facility] HOSPITALBLOOD UREA BOLZBHMQ174 - 23 mg/dL09/09/2025 10:29 AM [facility]OSPITALCREATININE0.920.40 - 1.00 mg/dL 09/09/2025 10:29 AM [facility]OSPITALComment:METHOD TRACEABLE TO IDMS EAFHZRUYELZPARV3321 - 99 mg/dL09/09/2025 10:29 AM EST [facility]OYCALCIUM9.38.5 - 10.5 mg/dL09/09/2025 10:29 AM [facility] HOSPITALEGFR Non-Race Zpflzascu38>=60 ml/min/1.73sq.m111/10/2024 10:29 AM [facility] Comment: eGFR not reported due to non-numeric value for Creatinine. Reported eGFR is based on the CKD-EPI 2020 equation that does not use a race coefficient. Specimen (Source)Anatomical Location / LateralityCollection Method / Volume Collection TimeReceived TimeBloodVenous blood / UnknownVenipuncture / Unknown 09/09/2025 10:05 AM EST09/09/2025 10:13 AM EST Narrative Authorizing ProviderResult TypeResult StatusMarsha L [place] DOLAB BLOOD ORDERABLESFinal ResultPerforming OrganizationAddressCity/State/ZIP CodePhone Number [facility] [address] * POCT , urine (09/09/2025 9:57 AM EST)ComponentValueRef RangeTest MethodAnalysis TimePerformed AtPathologist SignaturePOC Urine NegativeNegative, Rpigjxkmnxpue55/20/2025 10:02 AM [facility]ITALpecimen (Source)Anatomical Location / LateralityCollection Method / VolumeCollection TimeReceived PazcUkjkg91/20/2025 9:57 AM EST 09/09/2025 10:02 AM EST Narrative Authorizing ProviderResult TypeResult StatusMarsha L [place] DOPOINT OF CARE TEST ORDERABLESFinal ResultPerforming OrganizationAddressCity/State/ZIP Code Phone Number [facility]RISTIANOBLANCHARD VALLEY [facility] BLUFF[facility] HOSPITALConstantine [facility] [address] [place] [address], * (ABNORMAL) POCT Nursing Urine Macroscopic UA (09/09/2025 9:55 AM EST)Component ValueRef RangeTest MethodAnalysis TimePerformed AtPathologist [facility] Urine Specific [place]>=1.030(A)1.010, 1.015, 1.020, 1.0970809/09/2025 9:56 AM ESTPROCOMMUNITY HOSPITAL OF GARDENA Urine Leukocyte EsteraseTrace(A) Kaltvjre69/20/2025 9:56 AM ESTPROCOMMUNITY HOSPITAL OF GARDENA Urine CvmbwxyIygazgkpOakuqyot59/20/2025 9:56 AM ESTPROCOMMUNITY HOSPITAL OF [facility] Urine pH5.55.0, 6.0, 6.5, 7.0, 7.5, 8.0, 8.5, 5. 9:56 AM ESTPROMEDIHIGHLAND SPRINGS SUR[facility] Urine Mombfuh293 mg/dL(A)Negative 09/09/2025 9:56 AM ESTPROMEDIHIGHLAND SPRINGS SURG[facility]ENTER Urine Glucose ExnighzeBsrkvehv53/20/2025 9:56 AM ESTPROMEDIHIGHLAND SPRINGS SURG[facility]ENTER Urine KllptrbHrultsspQfbmerzn56/20/2025 9:56 AM ESTPROCOMMUNITY HOSPITAL OF GARDENA Urine Urobilinogen0.2 E.U./dL09/09/2025 9:56 AM ESTPROMEDIHIGHLAND SPRINGS SURG[facility]ENTER Urine KsajtjubrPivbxkhnIxncjjou38/20/2025 9:56 AM ESTPROCOMMUNITY HOSPITAL OF G[facility] Urine Blood/HGBTrace(A)Negative 09/09/2025 9:56 AM ESTKETTERING HEALTH MAIN CAMPUSpecimen (Source) Anatomical Location / LateralityCollection Method / VolumeCollection Time Received LykrFdvjb05/20/2025 9:55 AM EST09/09/2025 9:56 AM EST Narrative Authorizing ProviderResult TypeResult StatusMarjose Schmidt DOPOINT OF CARE TEST ORDERABLESFinal ResultPerforming OrganizationAddressCity/State/ZIP Code Phone Number [address] [place] [address], * Extra Urine Culture (09/09/2025 9:53 AM EST)ComponentValueRef RangeTest Method Analysis TimePerformed AtPathologist SignatureExtra TubeAuto Resulted 09/09/2025 11:01 AM [facility] (Source) Anatomical Location / LateralityCollection Method / VolumeCollection Time Received TimeUrineUrine specimen collection, clean catch / Cgoyyrd9509/09/2025 9:53 AM EST09/09/2025 10:14 AM EST Narrative Authorizing ProviderResult TypeResult StatusMarsha L Roxana DOURINE ORDERABLES Final ResultPerforming OrganizationAddressCity/State/ZIP CodePhone Number [address] [place] [address], [place] * Extra Urine (09/09/2025 9:53 AM EST)ComponentValueRef RangeTest MethodAnalysis TimePerformed AtPathologist SignatureExtra TubeAuto Tfgeeefc36/20/2025 11:01 AM ESTPROALAMEDA HOSPITALpectanner [facility] (Source)Anatomical Location / LateralityCollection Method / VolumeCollection TimeReceived TimeUrineUrine / Pjixbae4709/09/2025 9:53 AM EST09/09/2025 10:14 AM EST Narrative Authorizing ProviderResult TypeResult StatusMarsha L [place] DOURINE ORDERABLES Final ResultPerforming OrganizationAddressty/State/ZIP CodePhone Number [address] [place] [address], [place] * X-ray chest 1 view (08/26/2025 12:44 [...] on 08/26/2025 12:46 PM Authorizing ProviderResult TypeResult StatusSaeed Friend MDIMG DIAGNOSTIC IMAGING ORDERABLESFinal Result * Lavender Top (08/26/2025 12:27 PM EST)ComponentValueRef RangeTest Method Analysis TimePerformed AtPathologist SignatureExtra TubeAuto Resulted 08/26/2025 2:01 PM ESTPROSaint Louise Regional Hospital (Source) Anatomical Location / LateralityCollection Method / VolumeCollection Time Received TimeBloodVenous blood / Cwbbeff5808/26/2025 12:27 PM EST08/26/2025 12:38 PM EST Narrative Authorizing ProviderResult TypeResult Christa Friend MDLAB BLOOD ORDERABLES Final ResultPerforming OrganizationAddressCity/State/ZIP CodePhone Number [facility] [address] [facility] [place] [address], * PST TOP (08/26/2025 12:27 PM EST)ComponentValueRef RangeTest MethodAnalysis TimePerformed AtPathologist SignatureExtra TubeAuto Lstufnsn73/06/2025 2:01 PM ESTMetroHealth [facility] (Source)Anatomical Location / LateralityCollection Method / VolumeCollection TimeReceived TimeBloodVenous blood / Lvwbtwp4808/26/2025 12:27 PM EST08/26/2025 12:38 PM EST Narrative Authorizing ProviderResult TypeResult StatusSaeed Friend MDLAB BLOOD ORDERABLES Final ResultPerforming OrganizationAddressty/State/ZIP CodePhone Number [address] [address], * D-Dimer (08/26/2025 12:27 PM EST)ComponentValueRef RangeTest MethodAnalysis TimePerformed AtPathologist SignatureD DIMER<1501 - 255 ng/mL08/26/2025 1:02 PM ESTPROMEDICA KENTFIELD HOSPITAL SAN FRANCISCOComment:Results <255 ng/mL DDU: The presensence of a VTE can safely be excluded with a negative D-Dimer result and Wells score. A negative result doesn't exclude the possibility of DIC. The test should berepeated along with other diagnostic tests if the patient's symptoms persist or worsen.Specimen (Source)Anatomical Location / Laterality Collection Method / VolumeCollection TimeReceived TimeBloodVenous blood / UnknownVenipuncture / Luijuri6308/26/2025 12:27 PM EST08/26/2025 12:37 PM EST Narrative Authorizing ProviderResult TypeResult StatusSaeed Friend MDLAB BLOOD ORDERABLES Final ResultPerforming OrganizationAddressty/State/ZIP CodePhone Number [address] [address], from Last 3 Months Insurance * Guarantor: Radha RuddAccount TypeRelation to PatientDate of PhoneBilling AddressPersonal/BeurwnLgvq2002 (Home) [address] [place] [phone] Advance Directives * Full Code (Latest Code Status on File) Date ActivatedDate FnlumvfgzhnMvodicjs00/29/2023 2:31 AM08/21/2023 2:59 PM * Full Code Date ActivatedDate XrgyqcuxoppOecewqnh70/22/2023 9:03 AM08/14/2023 1:15 PM * Full Code Date ActivatedDate EeazmpzyholUtxpbhuc88/6/2023 3:26 PM2023 5:39 PM * Full Code Date ActivatedDate GsykhxcyuwrInkyjdgo03/26/2023 3:27 AM07/17/2023 7:58 PM * Full Code Date ActivatedDate TarqcwfofqkRwcqeqgq11/10/2023 6:40 PM10 9:04 PM NameRelationshipHealthcare Agent RelationshipCommunicationBeStaten Island University Hospital Care Agent* * Care Teams Team MemberRelationshipSpecialtyStart DateEnd Date Ema Strong MD [address] [place] [address] PCP - GeneralFamily Msotcjux48/20/25
--- OUTSIDE RECORDS SUMMARY | 2025-09-09 14:10 | XMS_ITS | Clinical Summary ---
Author Organization [facility] Healthcare Address [address] [place] [address] Care Team Providers Care Manager Infrastructure Name Role Phone Jamila Fry Evaristo CNM Unavailable WonderEma becker MD Primary Care Provider [phone] WonderlyEma MD Unavailable [phone] Allergies Active AllergyReactionsCriticalityNoted DateCommentsWound Dressing AdhesiveRash Low08/03/2023 Medications No known medications Active Problems ProblemNoted DateDiagnosed DateFamily history of thyroid disease in grandmother 01/11/2024High akjrfixwbjlzi68/10/2024Low HDL (under 40)09/30/2023History of mitral valve tfbfpwdu44/30/2023History of iron ntfcctyxig59/06/2020Anxiety 01/25/2020Lipoprotein deficiency rllrvayz91/04/2018Non-rheumatic mitral oqvxacsebmgmj77/05/2018Migraine without aura and responsive to treatment 10/06/2017POTS (postural orthostatic tachycardia syndrome)10/06/2017 Overview (09/30/2023): Followed by Dr. Rivera See his 07/20/[address] Rivera See his 07/20/23 note Thshwpanbcvejh88/23/2017Vitamin D nfwrmjdeyj67/26/2016PAC (premature atrial contraction)11/07/2015PVC (premature ventricular contraction)11/07/2015 Resolved Problems ProblemNoted DateDiagnosed DateResolved DateHx of pyelonephritis during qpmsvoxiw45/01/2024 Overview (09/30/2023): R PCNT placed 05/2023 Recurrent pyelonephritis (06/26/23, 07/16/23) R PCNT replaced 07/16 Urine culture 07/11 & 07/15 positive for enterobacter cloacae (PCNT) Completed 10 days IV Cefepime on 07/25 Admitted 07/27- for suspected UTI due to flank pain - urine cultures negative Discharged on Bactrim for suppression Mild intermittent asthma without msvfmbcgykji80 Immunizations ImmunizationAdministration DatesNext DueABRYSVO - Respiratory syncytial virus (RSV), vaccine, bivalent, protein subunit RSV prefusion F, diluent reconstituted, 0.5 mL, PF2379NOoC05/02/2008,05/02/2004DTaP, Unspecified 02/01/2003,2002,2002HPV 9-Paqlfn5809/20/2015HPV, Quadrivalent 05/21/2015,03/19/2015Hep A, ped/adol, 2 dose09/20/2015,03/19/2015Hep B, Adolescent or Hdxjydddz27/06/2003,2002HiB, pkboilfozjq41/14/2003, 2002Hib / Hep B005/02/2004IPV05/23/2008Influenza Whole07/12/2012Influenza, injectable, quadrivalent, preservative free, ycopzkywh44/31/2015Influenza, seasonal, mfawtbtmzq99/29/9145IWY9705/23/2008,05/02/2004Meningococcal MCV4O 05/21/2015Pneumococcal Conjugate PCV 7011/28/2002,2002Polio, Unspecified 02/01/2003,2002,2002Tdap109/26/2022,03/19/20152465Wxyrstqxy18/02/2008, 05/02/2004 Family History Medical HistoryRelationNameCommentsAnxiety disorderBrotherAccidental deathFather Alcohol abuseMotherrecoveringBipolar disorderMotherDepressionMotherCancer Paternal GrandfatherHypertensionPaternal GrandfatherRelationNameStatusComments BrotherAliveFatherDeceasedMaternal GrandfatherDeceasedMaternal GrandmotherAlive MotherAlivePaternal GrandfatherDeceasedPaternal GrandmotherAliveSisterAlive Social History Tobacco UseTypesPacks/DayYears UsedDateSmoking Tobacco: NeverSmokeless Tobacco: Never Tobacco Cessation:Counseling Given: Not Answered Alcohol UseStandard Drinks/WeekCommentsNever0 (1 standard drink = 0.6 oz pure alcohol)Caffeine: 1-2 cups/day pop; energy drinksCommentsUnknownSex and Gender InformationValueDate RecordedSex Assigned at BirthNot on fileLegal Sex Wjehhl7812/03/2022 6:38 PM EDTGender NtylcbxrIsddzx07/15/2023 6:38 PM EDTSexual OrientationNot on file Last Filed Vital Signs Vital SignReadingTime TakenCommentsBlood Rmzxuuif585/8004 10:38 AM EDT Wuwhu784001/11/2024 10:38 AM APCQtaxlqjzhon57.6 ??C (97.8 ??F)10/26/2023 3:13 PM ESTRespiratory Rate--Oxygen Ihjteffsxu40%09/30/2023 3:18 PM ESTInhaled Oxygen Concentration--Hsjgmk11.3 kg (139 lb 9.6 oz)01/11/2024 10:38 AM SKRFuuncq185.1 cm (5' 5 )01/11/2024 10:38 AM EDTBody Mass Index23.23001/11/2024 10:38 AM EDT Plan of Treatment Health MaintenanceDue DateLast DoneCommentsPneumococcal Vaccine: Pediatrics (0 to 5 Years) and At-Risk Patients (6 to 64 Years) (1 of 2 - PCV)2021 2002, 2002COVID-19 Vaccine (3 - season), 11/11/2021Influenza Vaccine (#1), 07/12/2012, 08/19/2011 Insurance Care Teams Team MemberRelationshipSpecialtyStart DateEnd Date Ema Strong MD [address] [place] [address] PCP - GeneralFamily Medicine01/27/23 Ema Strong MD PCP - [facility]12/21/23 Jamila Fry, PARAG [address] [place] [address] Obstetrics and Gynecology03/19/23
--- OUTSIDE RECORDS SUMMARY | 2025-09-09 14:10 | XMS_ITS | Encounter Summary ---
Author Organization [employer] tem Address [id number] [address] [place] [address] Care Team Providers Care Chief Of Service Name Role Phone Ema Strong MD Primary Care Provider [phone] Encounter Details DateTypeDepartmentCare Team (Latest Contact Info)Jzbchankion17/20/2025Travel Social History Tobacco UseTypesPacks/DayYears UsedDateSmoking Tobacco: NeverPassive [...] relatives?More than three times a week 09/16/2022ttends Catholic ServicesNot on file09/16/2022o you belong to any clubs or organizations such as restorationism groups, unions, fraternal or athletic shalonda ups, or school groups?No09/16/2022ttends Club or Organization MeetingsNot on file09/16/2022Marital StatusNot on file09/16/2022UDIT-CAnswerDate RecordedQ1: How often do you have a drink containing alcohol?Monthly or less12/ Average Number of DrinksNot on file09/16/2022Frequency of Binge DrinkingNot on file2Overall Financial Resource Strain (CARDIA)AnswerDate RecordedHow hard is it for you to pay for the very basics like food, housing, medical care, and heating?Not hard at all07/06/2023HQ-2AnswerDate RecordedTotal Score4 07/06/2023[facility] [place] [facility] - Occupational Stress QuestionnaireAnswerDate [...] living?No06/13/2023Edinburgh Depression ScaleAnswer Date RecordedEdinburgh Depression Scale Gzgsd24710/05/2023The thought of harming myself has occurred to me.Never10/05/2023Housing InstabilityAnswerDate RecordedAre you worried or concerned that in the next two months you may not have stable housing that you own, rent or stay in as a part of a household?No 08/08/2023hildcareAnswerDate RecordedDo problems 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 work [...] InformationValueDate RecordedSex Assigned at BirthNot on fileLegal HdzFclqrh61/04/2015 12:00 PM EDTGender IdentityNot on fileSexual OrientationNot on filedocumented as of this encounter Plan of Treatment Not on file documented as of this encounter Visit Diagnoses Not on filedocumented in this encounter Additional Health Concerns InfectionOnset DateLast IndicatedResolved TimeRespiratory Rule-Out09/09/2025 10:56 AM ESTAssessmentNoted TimePHQ-9 Depression Total Score: 11:30 AM EDTdocumented as of this encounter Care Teams Team MemberRelationshipSpecialtyStart DateEnd Date Ema Storng MD [address] [place] [address] PCP - GeneralFamily Bpfybttd32/20/25documented as of this encounter
--- OUTSIDE RECORDS SUMMARY | 2025-09-09 14:10 | XMS_ITS | Clinical Summary ---
Author Organization [facility] Address [address] [place] [address] Care Team Providers Care Oliver Filter Operator Name Role Phone Unavailable Primary Care Provider Unavailabl e Allergies Active AllergyReactionsCriticalityNoted EfmsXfnkppawDazveufgHgneGct03/13/2023 Medications MedicationSigDispense QuantityRefillsLast FilledStart DateEnd DateStatus acetaminophen (Tylenol) 500 mg tablet take 2 tablets by mouth every 6 hours if needed for pain07/19/2023ctive cholecalciferol (Vitamin D-3) 25 MCG (1000 units) tablet Take 1 tablet by mouth in the morning.04/01/2019Active cyproheptadine (Periactin) 4 mg tablet Take 2 tablets by mouth at bedtime.04/01/2019Active diphenhydrAMINE 25 mg capsule Take 1 tablet with Zofran and Naproxen at onset of acute migraine. May repeat in 6 hours x 1.11/29/2018Active DOCOSAHEXAENOIC ACID ORAL Take 1 capsule by mouth in the morning.01/07/2023ctive famotidine (Pepcid) 20 mg tablet Take 20 mg by mouth twice a day.07/09/2023ctive ferrous sulfate 325 (65 Fe) MG tablet Take 325 mg by mouth in the morning.07/27/2023ctive fluconazole (Diflucan) 150 mg tablet take 1 tablet by mouth A ONE TIME DOSE2023ctive sulfamethoxazole-trimethoprim (Bactrim DS) 800-160 mg tablet TAKE 1 TABLET BY MOUTH EVERY MORNING FOR 60 DAYS2023ctive coenzyme A35-hkxcbby E 100-5 mg-unit capsule Take 3 capsules by mouth in the morning.04/01/2019Active terconazole (Terazol 3) 0.8 % vaginal cream insert 1 applicatorful vaginally once daily nightly for 3 days07/09/2023ctive sucralfate (Carafate) 1 gram tablet take 1 tablet by mouth three times a day if needed for HEARTBURN IN 05/11/2023ctive Active Problems ProblemNoted DateDiagnosed DateHistory of mitral valve eljopnuf27/30/2023 08/06/2023UTI in , antepartum, third Overview (08/06/2023): 1. Recurrent symptomatic right hydronephrosis of ; [...] of ureteral stents with Dr. Avalos 2018 Qhwzwaejbdyhnv713POTS (postural orthostatic tachycardia syndrome) Overview (08/06/2023): Followed by Dr. Rivera See his 07/20/23 note Tpsivgktrwldmhnezgyf95/16/201811/16/2023PVC (premature ventricular contraction) Social History Tobacco UseTypesPacks/DayYears UsedDateSmoking Tobacco: NeverSmokeless Tobacco: Never Tobacco Cessation:Counseling Given: Not Answered Alcohol UseStandard Drinks/WeekCommentsNever0 (1 standard drink = 0.6 oz pure alcohol)UT Safety & EnvironmentAnswerDate RecordedFear of Current or Ex-Partner Not on file11/12/2023Emotionally AbusedNot on file11/12/2023hysically AbusedNot on file11/12/2023Sexually AbusedNot on file4Physically or Sexually AbusedNot on file4CommentsNoSex and Gender InformationValueDate RecordedSex Assigned at BirthNot on fileLegal RjxZeugll25/29/2022 11:50 PM EDT Gender IdentityNot on fileSexual OrientationNot on file Last Filed Vital Signs Vital SignReadingTime TakenCommentsBlood Ickxtlvn428/6608/06/2023 1:07 PM EST Ntfty362708/06/2023 1:07 PM EVUBxuuoaumlxw94.6 ??C (97.8 ??F)08/06/2023 1:07 PM ESTRespiratory Rate--Oxygen Saturation--Inhaled Oxygen Concentration--Kqcqup53.8 kg (165 lb)08/06/2023 1:07 PM LCDBxlnyo019.6 cm (5' 4 )08/06/2023 1:07 PM EST Body Mass Index28.32110/06/2022 1:07 PM EST Plan of Treatment Health MaintenanceDue DateLast DoneCommentsChlamydia Qkulpdktk2002 Depression Yqegwwqtz27/08/2014Meningococcal B Vaccine (1 of 2 - Standard) 2018Pap Smear2023Influenza Vaccine (#1), 07/12/2012, 08/19/2011dult Wnfvayr13, 03/19/2015Zoster Vaccines (1 of 2), 05/02/2004Pneumococcal Vaccine: Pediatrics (0 to 5 Years) and At-Risk Patients (6 to 64 Years)Aged Out 2002, 2002No longer eligible based on patient's age to complete this topicHIB RnjlxmebMuzaaythv02/12/2004, 02/01/2003, 2002IPV Vaccines Yswxkatko83/02/2008, 02/01/2003, 2002, Additional history existsVaricella RrmilswsTjkkmedav27/02/2008, 05/02/2004Meningococcal VaccineAged Out05/21/2015No longer eligible based on patient's age to complete this topicHPV Vaccines Cmdgkucga96/31/2015, 05/21/2015, 03/19/2015Rotavirus VaccinesAged OutNo longer eligible based on patient's age to complete this topic Insurance * Guarantor: Radha Rudd TypeRelation to PatientDate of BirthPhone Billing AddressPersonal/YsrgexNdpx[address] [facility] [place] [address]
[2025-09-09 14:19] LABS: Hematocrit 40.9 % (36.0-48.0); Hemoglobin 13.8 g/dL (12.0-16.0); Mean Corpuscular HGB Conc 33.7 g/dL (29.9-35.2); Mean Corpuscular Hemoglobin 30.8 pg (26.7-34.0); Mean Corpuscular Volume 91.3 fL (81.0-99.0); Platelet Count 201 10^3/uL (150-450); Red Blood Count 4.48 10^6/uL (4.20-5.40); White Blood Count 7.3 10^3/uL (4.0-11.0)
[2025-09-09 14:19] LABS: Glucose Urine UA NEGATIVE (NEGATIVE)
[2025-09-09] MEDS: 0.9 % SODIUM CHLORIDE 1,000 ML 1000 ML IV (14:32)
[2025-09-09] MEDS: PROMETHAZINE HCL 12.5 MG in 0.9 % SODIUM CHLORIDE 50 ML 202 MG IV (14:34)
--- NOTE | 2025-09-09 14:35 | PC.NURSE ---
assessed for ABD pain in [place] ER, pt still not feeling well so arrives to this ER for eval. Pt c/o n&v, no vomiting at this time in this ER
[2025-09-09 14:37] VITALS: TEMP 36.8
[2025-09-09 14:38] LABS: Anion Gap 12.3; Blood Urea Nitrogen 9.0 mg/dL (7.0-18.0); Calcium 8.7 mg/dL (8.5-10.1); Carbon Dioxide 28.4 mmol/L (21.0-32.0); Chloride 106 mmol/L (98-107); Estimated GFR (African America >60 (>=60 mL/min/1.73m^2); Estimated GFR (Non-African Ame >60 (>=60 mL/min/1.73m^2); Glucose 102 mg/dL (74-106); Potassium 3.7 mmol/L (3.5-5.1); Sodium 143 mmol/L (136-145)
[2025-09-09 14:46] LABS: Cast Seen? NONE SEEN #/LPF (NONE SEEN); Crystals Seen? None Seen #/HPF (None Seen); Urine Culture Indicated YES-FRMC
[2025-09-09 14:54] LABS: Basophils Abs Manual 0.00 10^3/uL (0.00-0.10); Basophils Percent Manual 0.0 % (0.2-2.0); Eosinophils Absolute Manual 0.00 10^3/uL (0.00-0.70); Eosinophils Percent Manual 0.0 % (0.9-7.0); Lymphocytes Absolute Manual 0.43 10^3/uL (1.20-3.80); Lymphocytes Percent Manual 6.0 % (20.5-60.0); Monocytes Absolute Manual 0.21 10^3/uL (0.30-0.80); Monocytes Percent Manual 3.0 % (1.7-12.0); Segmented Neut Absolute Manual 6.64 10^3/uL (1.4-6.5); Segmented Neutrophils % Manual 91.0 (43.0-75.0)
[2025-09-09 16:04] VITALS: BP 101/54; PULSE 76; O2SAT 100
--- NOTE | 2025-09-12 09:39 | PC.NURSE ---
09/12/25: URINE CULTURE NEG FOR GROWTH
== END 2025-09-09 16:07 | disposition home or self-care (01) ==
PROVIDERS: Emergency Provider Emergency Medicine; Family Provider Family Medicine; PCP Family Medicine
DX: R11.2 Nausea with vomiting, unspecified (principal); N39.0 Urinary tract infection, site not specified
CPT/HCPCS: 36415; 80048; 81001; 84703; 85007; 85027; 87086; 96365; 96367; 99284; J0696; J2550